=== PATIENT | male | born 1950 | race African-American/Black ===

== ENCOUNTER 2017-09-16 10:41 | Inpatient (IN) | payer MEDICARE, OTHER ==
[2017-09-16] MEDS ORDERED: NS 0.9% 1000 ML* 1,000 ML IV ONE ×2 (10:42→12:20)
[2017-09-16] MEDS ORDERED: Aspirin SUPP* 300 MG ONE (10:50)
--- NOTE | 2017-09-16 11:05 | RAD ---
INDICATION: Neurologic changes. Code vee. COMPARISON: None TECHNIQUE: Noncontrast axial source images were acquired from the skull base to the vertex. FINDINGS: Ventricles/sulci: The ventricles and cisterns are normal in size and configuration for age. Brain parenchyma: There is no focal parenchymal finding, evidence of intracranial mass, or intracranial mass effect. Intracranial hemorrhage:None. Extra-axial spaces: There are no abnormal extra axial fluid collections or evidence of extra-axial mass. Calvarium: There is no calvarial fracture or other calvarial abnormality. Scalp: There is no evidence of scalp or extracalvarial soft tissue abnormality. Paranasal sinuses/mastoid: The paranasal sinuses and mastoid air cells are clear. Other: None. IMPRESSION: No acute intracranial findings Findings called the ED at 1100 hours
[2017-09-16 11:42] LABS: Hematocrit 41 % (42-52); Hemoglobin 13.5 g/dl (14.0-18.0); Mean Corpuscular HGB Conc 33 g/dl (31-36); Mean Corpuscular Hemoglobin 34 pg (27-31); Mean Corpuscular Volume 103 fL (80-94); Mean Platelet Volume 9 um3 (7.4-10.4); Red Cell Distribution Width 15 % (10.5-15); White Blood Count 7.9 10^3/ul (3.5-10.8)
[2017-09-16 12:01] LABS: Albumin 4.1 g/dL (3.2-5.2); BUN/Creatinine Ratio 8.6 (8-20); Calcium 8.9 mg/dL (8.6-10.3); EGFR African American 145.6 (>60); EGFR Non-African American 113.2 (>60); Globulin 3.4 g/dL (2-4); HDL Cholesterol 145.6 mg/dL; Potassium 3.5 mmol/L (3.5-5.0); Total Bilirubin 0.6 mg/dL (0.2-1.0); Total Protein 7.5 g/dL (6.4-8.9)
[2017-09-16 12:02] LABS: Troponin I 0.02 ng/mL (<0.04)
[2017-09-16] MEDS ORDERED: Iohexol 350* (CONTRAST) 500 ML MDV IV ONE (12:07)
[2017-09-16] MEDS ORDERED: Aspirin SUPP* 300 MG PR ONE (12:19)
[2017-09-16] MEDS ORDERED: Thiamine IV* 100 MG, Folic Acid IV* 1 MG, Multiple Vitamin IV ADULT* 10 ML in NS 0.9% 1... IV ONE (12:31)
--- NOTE | 2017-09-16 12:32 | RAD ---
INDICATION: Stroke like symptoms COMPARISON: Chest x-ray dated November 14, 2013 TECHNIQUE: Single AP portable view of the chest was obtained. FINDINGS: Image quality is compromised due to the relative inferiority of a portable chest x-ray. Again seen is ectatic curvature of the thoracic aorta. The heart and mediastinum are otherwise normal in size and contour. The lungs are grossly clear. There is no evidence of a large pleural effusion. Visualized bones are normal for the patient's age. IMPRESSION: No radiographic evidence for acute cardiopulmonary abnormality on this portable chest x-ray.
--- NOTE | 2017-09-16 13:26 | RAD ---
Indication: Stroke. Contrast: Administered 80.1 ml of OMNIPAQUE 350 mg/ml CTA of the neck and head was performed after IV contrast demonstration. Coronal, sagittal and 3-D reconstructive images were obtained. The origins of the great vessels are unremarkable. The common carotid arteries demonstrates no significant stenosis or calcification. Calcific plaque is noted in the origins of both internal carotid arteries however no significant stenosis is identified. There may be some plaque noted in the right carotid bulb. The remainder of the internal carotid artery demonstrates no significant stenosis. No evidence of carotid artery dissection is noted. The vertebral arteries demonstrate no evidence of vertebral artery dissection and demonstrates fairly symmetric caliber. The carotid arteries in the skull base demonstrates no significant stenosis. Anterior and middle cerebral artery demonstrates normal bifurcation. No aneurysmal dilatation is noted. No branch occlusion is identified. Basilar artery and posterior cerebral arteries are unremarkable. No obvious intracranial lesion is identified. The skull base demonstrates mastoid air cells to be well aerated. Soft tissues of the neck demonstrates no evidence of abnormal adenopathy or masses. No prevertebral soft tissue swelling is noted. The lung apices are otherwise unremarkable. IMPRESSION: CTA of the neck demonstrates atherosclerotic plaque in the carotid bulb bilaterally. No evidence of significant stenosis or aortic dissection is noted. The intracranial circulation demonstrates no evidence of branch occlusion or aneurysmal dilatation.
[2017-09-16 14:11] LABS: Urine Bacteria Absent (Absent); Urine Bilirubin Negative (Negative); Urine Glucose Negative (Negative); Urine Nitrite Negative (Negative)
--- NOTE | 2017-09-16 15:01 | HP ---
HISTORY AND PHYSICAL: DATE OF ADMISSION: 09/16/17 PRIMARY CARE PHYSICIAN: He did not have one. CHIEF COMPLAINT: Right sided weakness. HISTORY OF PRESENT ILLNESS: Mr. Trotter is a 66-year-old male with a past medical history of alcohol abuse, tobacco abuse, little medical followup who presents to the hospital after he was found down by his . Patient cannot recall much of what led to the hospitalization. His states that she last saw him and interacted with him around 5 a.m. She thinks that around 9:30 a.m. he came to the bathroom with her although she was busy and did not actually see him, later on in the morning she found him on the floor in the room between the dresser and the bed. She states that he was awake, but she could not pick him up and noticed that he was weak on the right side and also noticed that his speech was slurred. She called EMS and he was brought to the hospital. The patient currently denies any pain, but again speech is slurred he cannot recall exactly why he came to the hospital. Denies fever or chills. Denies chest pain , says he has had a recent cough lately, productive of clear phlegm. No nausea or vomiting. Of note, the patient is a heavy drinker, states he drinks about a half a pint of vodka a day, and occasionally up to a pint. His last drink was earlier this morning. He has no history of stroke and does not currently take any medications or see any doctors. There was no report of any shaking, bladder or bowel incontinence. In the Emergency Department a roseann vee was called, the patient received 300 mg of rectal aspirin. Neurology and Hospital Medicine were consulted. PAST MEDICAL HISTORY: None. PAST SURGICAL HISTORY: None. HOME MEDICATIONS: None. ALLERGIES: No known drug allergies. FAMILY HISTORY: Significant for her mother with diabetes. SOCIAL HISTORY: Patient reports half pack per day smoking history x30 years, also half a pint to a pint of vodka daily. Last drink was this morning. He states she has never had withdrawal symptoms before, and his daughter chimed in because he does not stop drinking long enough to allow that. Reports occasional marijuana use. No intravenous drug use. REVIEW OF SYSTEMS: A 12-point review of systems is negative except what is noted in the HPI. PHYSICAL EXAMINATION GENERAL: The patient is a middle-aged, male, lying in bed, in no apparent distress. VITAL SIGNS: On admission, blood pressure 130/80, O2 saturation 94% on 3 L, heart rate of 105. HEENT: Head normocephalic, atraumatic. Eyes: Pupils equal, round and reactive to light and accommodation. Arcus senilis present. Anicteric sclerae. ENT: Dry mucous membranes. No cervical adenopathy. Alcohol smell on the patient's breath. LUNGS: Clear to auscultation in the anterior and lateral pillai bilaterally. CARDIOVASCULAR: Mild tachycardia. No murmurs, gallops, or rubs. ABDOMEN: Soft, nontender, nondistended. Bowel sounds are positive. EXTREMITIES: No cyanosis, clubbing, or edema. Patient with 4/5 strength in the right deltoid, 4+/5 in the right elbow flexion/extension, 5/5 strength throughout the left upper extremity. Right lower extremity with 4/5 strength in right hip flexion and extension. Remainder of right lower extremity and left lower extremity strength is 5/5. I did not assess patient's gait. NEUROLOGIC: The patient is alert and oriented, although seems slightly intoxicated. Speech is slurred. Cranial nerve exam shows a possible right sided facial weakness. Sensation seems intact and symmetric throughout. LABS AND DIAGNOSTICS: White blood cell count of 7.9, hematocrit of 41, MCV of 103, platelets of 159. INR of 0.85. Sodium 139, potassium 3.5, chloride of 99 , carbon dioxide of 21, anion gap of 19, glucose of 91, lactic acid of 8.3, AST of 306, ALT of 85, alk phos of 82. Troponin of 0.02, triglycerides of 82, cholesterol of 253, LDL of 91, HDL of 145. Serum alcohol of 129. CT of the brain shows no acute findings. Chest x-ray personally reviewed shows no acute disease. EKG personally reviewed shows sinus tachycardia, some questionable mild ST depression inferior and lateral leads. ASSESSMENT AND PLAN: Cerebrovascular accident, likely left middle cerebral artery, in a 66-year-old man with a past medical history of alcohol and tobacco abuse. 1. Cerebrovascular accident. Patient's code vee did not qualify for tPA. Dr. Murcia evaluated the patient. Patient received rectal aspirin. We will continue this daily for now. CTA of the head and neck as well as an MRI are pending at this time. We will order a transthoracic echocardiogram, continue to monitor the patient on telemetry. I have ordered OT/PT, Speech Therapy, and Swallow evaluation. I have also ordered a bedside swallow evaluation. We will keep the patient n.p.o. for now. I spoke with Dr. Murcia regarding patient's elevated lactate level. He did not feel that an EEG was needed at this time. 2. Lactic acidosis. Patient may be dehydrated secondary to alcohol use. He has received a liter of IV fluids in the Emergency Department. We will give another 1 L of bolus now as well as 100 cc per hour. Recheck a lactate in an hour. 3. Alcohol abuse. The patient currently is intoxicated with a serum alcohol of 129, also has a mild alcoholic hepatitis. Patient certainly at risk of developing alcohol withdrawal symptoms. I am a little hesitant to put him on standing Ativan in the setting of stroke as this could affect his neuro exam. For now, we will just use p.r.n. Ativan and if withdrawal symptoms become significant can always start standing dose at that time. We will give a banana bag here in the emergency department, start the patient on thiamine, folate, multivitamin as well. 4. DVT prophylaxis. Lovenox subcu. 5. Code status. The patient is full code. TIME SPENT: Total time spent on this admission 60 minutes with half the time spent [id number] with the patient in counseling and coordinating care. [id number]/[facility] #: [id number] MTDD
--- NOTE | 2017-09-16 16:48 | CONS ---
CONSULTATION REPORT: DATE OF CONSULT: 09/16/17 LOCATION: ER REASON FOR CONSULT: Harry vee. HISTORY OF PRESENT ILLNESS: Mr. Trotter is a 66-year-old gentleman who is a chronic and heavy alcohol user, currently intoxicated, who was brought to the ER by ambulance, initially with a report that he was last seen normal 1 hour prior to the admission about 10 a.m. His and daughter were both at the bedside. Upon further questioning, it was found that he was reliably last seen normal at 5 a.m. By the time he had arrived in the ER he was outside of the tPA window. In initial NIH stroke scale over the phone to me was 11, when I saw him he had a stroke scale of 7. The family states that his speech was improving some by that time. The family states that at around 5 a.m. his saw him normal walking around normal, normal speech. Subsequently, she was in the bathroom when he came in at around 10 or slightly before and she states that he walked by her, but she could not get a good sense of whether or not his speech was normal or he was weak on one side or the other. After discussing the fact that we needed a good reliable last normal, the and the daughter both felt like the most reliable last normal was at 5 a.m. We discussed the risks and benefits of tPA. I explained that the risks of giving tPA outside of the window were high for bleeding complications and the family understood and agreed. Upon arrival in the ER, he was noted to be hemiparetic on the right side with some fascial droop on the right side and slurred speech. His apparently found him down on the ground at around 10 o'clock at which point in time the ambulance was called. On the ground she noted that he was weak on the right side and had slurred speech. She states that his speech has improved. The patient does not go to the doctor. He was last seen in the ER back in 2012 , at that time he had sustained a fall. He was also seen in the distant past for rectal bleeding back in 2000. The states and the patient both state that he drinks approximately a half a pint to a pint of vodka a day. He also drinks beer on top of that. The and daughter also state that he smokes marijuana heavily 4 to 5 times a day and smokes cigarettes. He has been smoking cigarettes since the age of 13. He does not go to the doctor and the family is unclear about his past medical history. There has been no reported DTs in the past. No seizure like activity. There has been no reported recent illnesses, fevers, chills, nausea, vomiting, diarrhea, constipation, chest pain , shortness of breath, dyspnea on exertion, or other symptoms. Family notes that he is a very poor historian. PAST MEDICAL HISTORY: His past medical history is unknown. The family denies any past history of DTs, seizures, heart attacks, strokes, diabetes, or hyperlipidemia. PAST SURGICAL HISTORY: Unknown. Family states he has had no surgeries. CURRENT MEDICATIONS: None. ALLERGIES: No known drug allergies. FAMILY HISTORY: His family history is largely unknown, but his daughter states that he had a brother that had a heart attack, possible strokes in the family, otherwise unknown. SOCIAL HISTORY: As noted above, drinks half a pint to a pint of vodka a day. Smokes marijuana 4 to 5 times a day. Smokes cigarettes as well. Denies any IV drug use. He is not working. He lives with his . REVIEW OF SYSTEMS: In 14-organ systems as noted above, a very difficult history. He is not reliable, but pertinent positives and negatives are noted above. PHYSICAL EXAM: Vital Signs: His blood pressure was 130s/90s, pulse was tachycardic in the low 100s, respiratory rate of 16, his sats were good. On examination, he is a thin, poorly nourished gentleman, lying in his hospital bed. He is intoxicated, but generally pleasant. HEENT is normocephalic and atraumatic. His sclerae are dirty. Mucous membranes are slightly dry. Oropharynx is clear. He has poor dentition. Neck is supple. There is no carotid bruits. Chest is clear to auscultation bilaterally. Cardiovascular is tachycardic, regular rhythm, no murmurs appreciated. Abdomen is scaphoid, nontender. Extremities: There is no clubbing, cyanosis, or edema. Skin is very dry and flaky in the arms and legs. No significant lacerations noted. No bruising noted. Neurologic Examination: He is awake, he is intoxicated, but generally alert. He is oriented to person, to 2016, to September 16, not to the day of the week. He is unclear where he is. He knew he was in a hospital ER. His speech is dysarthric, there is no aphasia noted. His repetition is intact. Recall is generally intact although he is a poor historian. Cranial nerves: His pupils are equally round and reactive to light. His extraocular muscles are intact and looks in all quadrants. Visual pillai are intact. His space is asymmetric, he has a droop in the right lower face, flattening of the nasolabial fold. Sensation in the face is intact bilaterally. Hearing is intact bilaterally. His palate raises symmetrically. His tongue is midline. His sternocleidomastoid and trapezius were both normal. Motor Exam: He is unable to raise is right arm against gravity. He has some movement with gravity eliminated. His right lower extremity, he is able to lift off the exam bed for a few seconds and then drifted downward. He has 4-/5 resistance in the right lower extremity proximally, 4/5 distally. He has 5/5 on the right side upper and lower extremities. His sensation is intact to light touch and pinprick bilaterally and there is no extinction. DTRs were 3+ at the patella bilaterally, 1+ at he ankle bilaterally, upgoing Babinski's bilaterally, 1+ at the biceps and triceps bilaterally. He is tremulous, there is an intention tremor in the left upper extremity with [id number]. No dysmetria. He is unable to [id number] on the right, but on the left he is able to perform the task without difficulty. Gait cannot be tested at this time. DIAGNOSTIC STUDIES/LAB DATA: Lab work includes a CBC with diff, significant for hemoglobin of 13.5, hematocrit of 41, lymphocyte count of 21.4, monocyte of 9.7, PTT of 24.4, INR of 0.5. His complete metabolic profile is significant for chloride of 99, carbon-dioxide of 21, anion gap of 19. AST of 306, ALT of 85. LDL cholesterol is 91, HDL 145.6, triglycerides of 82, cholesterol of 253. IMAGING: He had a CT of the head, report is unavailable. I reviewed the films , I see no evidence of hemorrhage, no shift, no obvious acute abnormalities. ASSESSMENT AND PLAN: Mr. Trotter is a 66-year-old gentleman with no known past medical history, but does not go to the doctor. He has a history of heavy alcohol use, at least a half a pint to a pint a day of vodka for years. A history of heavy marijuana use daily, tobacco use. No history of seizures or DTs in the past. Presents to the hospital with acute onset of right upper and lower extremity weakness as well as facial droop and dysarthria concerning for a left MCA stroke. The patient is a very poor historian. After extensive questioning of the family, it was felt that the most reliable last normal was at 5 a.m. The could not state for certain that he was normal when she saw him at 10 a.m. and the patient was unable to provide any history. After discussing the risks and benefits of tPA with the family we all felt that because the timeline was unclear, the risks outweigh the benefits and it was decided not to give him tPA. He will be admitted for stroke workup. 1. He received aspirin in the ER, will continue baby aspirin for now. 2. He is to have an MRI of the brain, CTA of the head and neck, and echocardiogram. 3. I would recommend starting a statin, atorvastatin 80 mg daily at bedtime. 4. Permissive hypertension, will need labetalol p.r.n. for systolic blood pressure greater than 220, diastolic greater than 110. 5. We will check lab work to rule out reversible causes of stroke. 6. Monitor on telemetry for any evidence of atrial fibrillation. 7. He will be monitored closely for any evidence of DTs given his heavy alcohol use including tachycardia, diaphoresis, seizure-like activity, altered mental status. I spoke with the admitting physician. They will start him on a banana bag, supplement folic acid and thiamine. Defer to them whether to put in on prophylactic benzodiazepine, may need beta-christin if his tachycardia becomes unmanageable. 8. I would make him n.p.o. pending a swallowing evaluation given his significant dysarthria. 9. He will need PT/OT/speech therapy. 10. Discussed with the family and the patient the importance of smoking cessation, marijuana cessation, and alcohol cessation. 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 DVT and GI prophylaxis per the primary team. I will continue to follow him closely, make further recommendations as necessary. Thank you for the opportunity to participate in the care of this very nice gentleman. [id number]/[facility] #: [id number] TRUPTI
[2017-09-16] MEDS: NS 0.9% 1000 ML* 1,000 ML IV SCH (17:04)
[2017-09-16] MEDS: Enoxaparin(*) 40 MG/0.4 ML SYR SUBCUT SCH (17:13)
--- NOTE | 2017-09-16 18:39 | RAD ---
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 IMPRESSION: No radiopaque foreign body is identified.
--- NOTE | 2017-09-16 19:35 | RAD ---
Indication: Stroke. Image sequences: Sagittal T1, axial flair, diffusion images of the brain were obtained. The study is limited as the patient would not cooperate for further examination. Ventricular structures are midline. No midline shift is noted. The extra-axial spaces are slightly prominent. There appears to be restriction of diffusion in the left posterior limb of the internal capsule as well as in the left periventricular white matter in the left parietal area. This is consistent with small lacunar infarcts. The right cerebral hemisphere is unremarkable. The brainstem and posterior fossa are unremarkable. The paranasal sinuses are unremarkable. IMPRESSION: There appears to be small lacunar infarcts involving the left basal ganglia in the region of the left posterior limb of the internal capsule as well as the left periventricular white matter.
[2017-09-16 21:43] LABS: TSH (Thyroid Stimulating Horm) 0.59 mcIU/mL (0.34-5.60)
[2017-09-16 21:47] LABS: Free T4 0.69 ng/dL (0.61-1.12)
[2017-09-16 21:56] LABS: Folate 9.07 ng/mL (>3.99)
[2017-09-17] MEDS: LORazepam INJ* 2 MG/ML 1 ML VIAL IV PUSH SCH ×4 (03:37→23:38)
[2017-09-17 05:58] LABS: Albumin 3.9 g/dL (3.2-5.2); BUN/Creatinine Ratio 8.3 (8-20); Calcium 8.4 mg/dL (8.6-10.3); EGFR Non-African American 174.9 (>60); Globulin 3.2 g/dL (2-4); Potassium 3.3 mmol/L (3.5-5.0); Total Bilirubin 0.6 mg/dL (0.2-1.0); Total Protein 7.1 g/dL (6.4-8.9)
[2017-09-17] MEDS: NS 0.9% 1000 ML* 1,000 ML IV SCH ×2 (06:45→21:12)
[2017-09-17] MEDS: Multivitamins/Minerals TAB PO SCH (07:55)
[2017-09-17] MEDS: Aspirin Low Dose CHEW TAB* 81 MG PO SCH (07:56)
[2017-09-17] MEDS: Thiamine TAB* 100 MG TAB PO SCH (07:56)
[2017-09-17] MEDS: Folic Acid TAB* 1 MG PO SCH (07:56)
--- NOTE | 2017-09-17 08:00 | ECHO ---
Patient: JAY JAY SOTO I [facility] Rec#: [id number] : 1950 Date: 09/16/2017 Age: 66y Height: 175.26 cm / 69.0 in Weight: 67.13 kg / 148.0 lbs Sex: M BSA: 1.82 Room#: 437 Admit Date#: 09/16/2017 Type: Inpatient Referring: CIARA CARVER MD Reading: Kanu Sorenson MD Crusher Operator: Rebecca DavisonNEW [facility]RISE [facility] Transthoracic Echocardiogram Indication: CVA BP: 146/123 HR: 89 Rhythm: NSR Findings History: Smoker, and ETOH abuse. Technical Comments: The study is technically difficult. The study is technically limited due to poor acoustic windows. Completed at 1650. Left Ventricle: The left ventricular chamber size is normal. There is no left ventricular hypertrophy. Global left ventricular wall motion and contractility are within normal limits. There is normal left ventricular systolic function. The estimated ejection fraction is 55-60%. There is no consistent Doppler evidence of clinically significant diastolic dysfunction. Left Atrium: The left atrial chamber size is normal. Right Ventricle: The right ventricle is mildly dilated. The right ventricular global systolic function is hyperdynamic. Right Atrium: The right atrial cavity size is normal. A patent foramen ovale is visualized. There is a patent foramen ovale with predominant [id number] shunting.Only seen during valsalva manuver A patent foramen ovale is demonstrated by color Doppler and agitated contrast. Aortic Valve: The aortic valve is trileaflet. The aortic valve leaflets are mildly thickened. There is no evidence of aortic regurgitation. There is no evidence of aortic stenosis. Mitral Valve: The mitral valve leaflets are mildly thickened. There is a trace of mitral regurgitation. There is no evidence of mitral stenosis. Tricuspid Valve: The tricuspid valve leaflets are mildly thickened. There is mild to moderate tricuspid regurgitation. The right ventricular systolic pressure is estimated at 35 mmHg. There is no tricuspid stenosis. Pulmonic Valve: The pulmonic valve appears normal. There is a trace pulmonic regurgitation. There is no pulmonic stenosis. Pericardium: There is no significant pericardial effusion. A pericardial fat pad is visualized. Aorta: There is moderate dilatation of the ascending aorta. There is no dilatation of the aortic arch. There is mild dilatation of the aortic root. Pulmonary Artery: The main pulmonary artery is not well visualized. Venous: The inferior vena cava appears normal in size. There is an approximate 50% respiratory change in the inferior vena cava dimension. Contrast: Normal saline was used as contrast for the bubble study. Images 12 and 13. Intravenous contrast was used to help determine presence of intracardiac shunting. Conclusions Global left ventricular wall motion and contractility are within normal limits. There is normal left ventricular systolic function. The estimated ejection fraction is 55-60%. The right ventricular global systolic function is hyperdynamic. There is a patent foramen ovale with predominant [id number] shunting.Only seen during valsalva manuver There is no evidence of aortic stenosis. There is a trace of mitral regurgitation. There is mild to moderate tricuspid regurgitation. The right ventricular systolic pressure is estimated at 35 mmHg. There is no significant pericardial effusion. There is moderate dilatation of the ascending aorta. Measurements Name Value Normal Range RVIDd (AP) 2D 3 cm (0.9 - 2.6) RVDdMajor (2D) 4.5 cm (2.2 - 4.4) RAd ISD 4CH 4.8 cm (3.4 - 4.9) RA (A4C)W 3.7 cm (2.9 - 4.6) IVSd (2D) 0.8 cm (0.6 - 1) LVPWd (2D) 0.8 cm (0.6 - 1) LVIDd (2D) 4.6 cm (3.6 - 5.4) LVIDs (2D) 3.13 cm - LV FS (2D) 32 % (25 - 45) Aortic Annulus 2.3 cm (1.4 - 2.6) Ao root diameter (2D) 3.7 cm (2.1 - 3.5) Ascending Ao 4.1 cm (2.1 - 3.4) Aortic arch 3 cm (1.8 - 3.4) LA dimension (AP) 2D 3.1 cm (2.3 - 3.8) LAd ISD 4CH 3.7 cm (2.9 - 5.3) LA ISD 4CH W 3.3 cm (2.5 - 4.5) Name Value Normal Range LA ESV SP 4CH (A/L) 42 ml - LA ESV SP 2CH (A/L) 52 ml - LA ESV BP (A/L) 53 ml - LA ESV BP (A/L) index 29 ml/m2 - LA ESV SP 4CH (MOD) 28 ml - LA ESV SP 2CH (MOD) 48 ml - Name Value Normal Range MV E-wave Vmax 0.52 m/sec - MV deceleration time 128.18 msec - MV A-wave Vmax 0.74 m/sec - MV E:A ratio 0.7 ratio - LV septal e' Vmax 0.05 m/sec - LV lateral e' Vmax 0.09 m/sec - LV E:e' septal ratio 10.4 ratio - LV E:e' lateral ratio 5.8 ratio - Name Value Normal Range AV Vmax 1.3 m/sec - AV VTI 21.99 cm - AV peak gradient 6.3 mmHg - AV mean gradient 3.61 mmHg - LVOT Vmax 0.76 m/sec - LVOT VTI 12.24 cm - LVOT peak gradient 2.31 mmHg - LVOT mean gradient 1.22 mmHg - XIOMARA Vmax 0.43 m/sec - Name Value Normal Range TR Vmax 2.61 m/sec - TR peak gradient 27 mmHg - RAP 8 mmHg - RVSP 35 mmHg - IVC diameter 1.8 cm - Name Value Normal Range PV Vmax 1.02 m/sec - PV peak gradient 4.2 mmHg -
--- NOTE | 2017-09-17 08:45 | PN ---
Subjective Date of Service: 09/17/17 Interval History: Patient seen this morning. Reports some weakness and discomfort on the right side. present, speech clearer today. Has received some Ativan overnight for withdrawal symptoms. Family History: Unchanged from Admission Social History: Unchanged from Admission Past Medical History: Unchanged from Admission Objective Active Medications: Aspirin (Aspirin Low Dose Tab*) 81 mg PO DAILY [facility] Last Admin: 09/17/17 07:56 Dose: 81 mg Atorvastatin Calcium (Lipitor*) 40 mg PO 1700 LAVELL Enoxaparin Sodium (Lovenox(*)) 40 mg SUBCUT Q24H [facility] Last Admin: 09/16/17 17:13 Dose: 40 mg Folic Acid (Folvite Tab*) 1 mg PO DAILY [facility] Last Admin: 09/17/17 07:56 Dose: 1 mg Sodium Chloride (Ns 0.9% 1000 Ml*) 1,000 mls @ 100 mls/hr IV PER RATE [facility] Last Admin: 09/17/17 06:45 Dose: 100 mls/hr Labetalol HCl (Trandate Iv*) 10 mg IV PUSH Q20M PRN PRN Reason: BLOOD PRESSURE Lorazepam (Ativan Tab(*)) 0 - 6 mg PO .PER WA PROTOCOL [facility] PRN Reason: Protocol Lorazepam (Ativan Tab(*)) 0 mg PO Q8H [facility] PRN Reason: Taper Stop: 09/20/17 04:59 Multivitamins/Minerals (Theragran/Minerals Tab*) 1 tab PO DAILY [facility] Last Admin: 09/17/17 07:55 Dose: 1 tab Thiamine HCl (Vitamin B-1 Tab*) 100 mg PO DAILY [facility] Last Admin: 09/17/17 07:56 Dose: 100 mg Vital Signs 09/16/17 09/16/17 09/16/17 13:13 13:14 13:30 Temperature Pulse Rate 90 94 Respiratory 14 14 Rate Blood Pressure 146/85 147/96 (mmHg) O2 Sat by Pulse 98 98 Oximetry 09/16/17 09/16/17 09/16/17 14:00 14:06 15:13 Temperature 98.6 F 98.6 F Pulse Rate 91 100 100 Respiratory 16 16 16 Rate Blood Pressure 144/84 153/105 153/105 (mmHg) O2 Sat by Pulse 97 100 100 Oximetry 09/17/17 09/17/17 09/17/17 03:37 04:37 05:35 Temperature Pulse Rate 66 Respiratory 20 20 Rate Blood Pressure 164/84 (mmHg) O2 Sat by Pulse 99 Oximetry Oxygen Devices in Use Now: None Appearance: Middle-aged, AAM, laying in bed in NAD Eyes: No Scleral Icterus Ears/Nose/Mouth/Throat: - - Dry MM Neck: NL Appearance and Movements; NL JVP Respiratory: Symmetrical Chest Expansion and Respiratory Effort, Clear to Auscultation Cardiovascular: NL Sounds; No Murmurs; No JVD, RRR Abdominal: NL Sounds; No Tenderness; No Distention Lymphatic: No Cervical Adenopathy Extremities: No Edema Skin: No Rash or Ulcers Neurological: - - Improvement in R facial droop, speech clearer. 5/5 strength throughout B/L UEs and LEs. Reports some heightened sensitivity in RUE, sensation symmetric in LEs Result Diagrams: 09/16/17 11:25 09/17/17 05:08 Assess/Plan/Problems-Billing Assessment: CVA, EtOH withdrawal in a 66 yo M with hx of EtOH and tobacco abuse - Patient Problems (1) CVA (cerebral vascular accident) Current Visit: Yes Comment: MRI shows small L sided lacunar infarcts. Appreciate Neuro assistance. Continue ASA, statin. Permissive HTN. PFO on echo, Dr. Murcia to order LE dopplers. PT/OT/Speech/ARTIST MODEL. (2) Alcohol withdrawal Current Visit: Yes Comment: WA protocol. Will add standing Ativan taper, may need increased dose. Continue prn ativan. Thiamine, folate, MVM. (3) Lactic acidosis Current Visit: Yes Comment: Resolved with IVF (4) DVT prophylaxis Current Visit: Yes Comment: Lovenox
[2017-09-17] MEDS ORDERED: Magnesium Sulfate 2 GM IV* 2 GM/50 ML BAG IVPB ONE (08:57)
[2017-09-17] MEDS ORDERED: Aspirin SUPP* 300 MG PR SCH (09:00)
[2017-09-17] MEDS: Potassium Chloride LIQUID* 20 MEQ PACKET PO SCH ×2 (09:12→12:12)
[2017-09-17] MEDS: LORazepam TAB(*) 1 MG PO SCH ×5 (09:12→17:56)
[2017-09-17 09:16] LABS: Magnesium 1.7 mg/dL (1.9-2.7)
--- NOTE | 2017-09-17 11:37 | PN ---
PROGRESS NOTE: DATE OF PROGRESS NOTE: 09/17/17 CURRENT LOCATION: Room 437, bed 1. HISTORY: Overnight, he has been somewhat agitated at times. He did vomit x1. He has been more tremulous. He has been getting Ativan for withdrawal type symptoms. There have been no seizures reported. Overnight, his stroke symptoms have improved somewhat. His speech is better. He is moving his right side more. He is slightly agitated at this time, but understands why he is here and knows where he is. There have been no other reports overnight of any problems. Vital Signs: Blood pressure 164/84, O2 sat of 99, respiratory rate of 20, pulse is 67. Blood pressures have been in 150s to 160s over 80s to low 100s. In general, he is a well-developed although thin and somewhat poorly nourished gentleman lying in his hospital bed. His is at the bedside. Seizure pads are in place. HEENT: He is normocephalic, atraumatic. Sclerae are dirty. Mucous membranes are moist. His oropharynx is clear. He has poor dentition. Neck is supple. Chest: Clear to auscultation bilaterally. Cardiovascular is regular rate and rhythm. Abdomen is nontender. Scaphoid. Extremities: No cyanosis, clubbing, or edema. His skin is warm and is very flaky and dry. On neurologic exam, he is awake. He is alert. He is oriented to person, place, and time. His speech is fluent with some etzo-dm-kbbgrxkq dysarthria. There is no aphasia present. Cranial nerves II through XII. His pupils are equal, round, and reactive to light. Extraocular muscles are intact. Visual pillai are full. He has right lower facial droop diminished smile. Sensation is intact. Hearing is intact. Tongue is midline. Palate is symmetric. Motor exam, spontaneously moving all extremities, antigravity. He has improved strength in the right upper and right lower extremity. He is able to give good effort 4+/5 throughout. He has some drift in the right upper extremity after about 8 seconds. He has drift in the right lower extremity after 4 or 5 seconds. He has some mild drift in the left lower extremity after 10 seconds. Sensation is intact to light touch and pinprick throughout. There is no extinction. Finger- to-nose and rapid alternating movements are significant for [id number] tremor bilaterally. He is also tremulous in bed at rest arms and legs. Lab work includes a complete metabolic profile this morning with a potassium of 3.3, chloride of 95, anion gap of 12, BUN of 4, creatinine of 0.48, calcium of 8.4. AST of 235, ALT of 72, TSH is 0.59, free T4 0.69, B12 of 634, folate of 9.07. His serum alcohol was 129. LDL as noted yesterday of 91. Triglycerides of 82, cholesterol 253, HDL 145.6. Following studies have been done. The brain CT yesterday reviewed showed no acute abnormalities. The chest x-ray yesterday showed no cardiopulmonary abnormalities acute. Head CTA yesterday showed no intracranial stenosis, vertebral and basilar artery looked okay. There is calcific plaque noted in the origins of both internal carotids; however, no significant stenosis, maybe some plaque in the right carotid bulb. Remainder of the internal carotids show no stenosis and no evidence of dissection. He did have the MRI, which was reviewed; it shows lacunar infarction involving the left basal ganglia in the region of the left posterior lamina of the internal capsule as well as the left periventricular white matter. Transthoracic echocardiogram showed a global left ventricular wall motion and contractility within normal limits. Normal left ventricular systolic function, estimated ejection fraction of 55% to 60%. Right ventricular global systolic function is hyperdynamic. There is patent foramen ovale with predominant right to left shift only during Valsalva. There is no evidence of aortic stenosis. There is trace mild regurg, mild-to- moderate tricuspid regurg, right ventricular systolic pressure is estimated at 35 mmHg. No significant pericardial effusion. There is moderate dilatation of the ascending aorta. Mr. Trotter is a 66-year-old gentleman who is a heavy alcohol and marijuana user, also does not follow regularly with any physicians. He is not on any medications at admission, presented with dysarthria, right facial droop, and right-sided weakness, found to have a left basal ganglia and periventricular stroke. He also came in intoxicated and is starting to withdraw. At this point from a stroke standpoint, we are going to continue his aspirin and statin. He does have a PFO, I am going to check venous Dopplers of the lower extremities to rule out any DVTs. At this point, I feel that treatment with aspirin alone is adequate for the PFO. There is no real benefit at this point barring any other findings to treat with a higher level of anticoagulation. He has no history of atrial fibrillation. He has no history of blood clots. He has no significant other findings on MRI that would suggest old strokes. We will continue the aspirin and follow up with a venous ultrasound. He is currently on a statin as well, goal LDL will be less than 70. I worry about ongoing medical care for him as he is been noncompliant in the past, but at this point, he is starting the process of withdrawing from the alcohol. I spoke with his primary care physician, who has him on scheduled benzodiazepine. He is also on supplemental folic acid and thiamine as well as multivitamin and getting IV fluids. He has labetalol p.r.n. for elevated blood pressures. At this point, I am comfortable with some permissive hypertension given his recent stroke. We start to lower that tomorrow with medications as necessary. He is on DVT prophylaxis. I will continue to follow him and make further recommendations as necessary. [id number]/[facility] #: [id number] TRUPTI
[2017-09-17] MEDS: Enoxaparin(*) 40 MG/0.4 ML SYR SUBCUT SCH (12:12)
[2017-09-17] MEDS ORDERED: Metoprolol Tartrate TAB* 25 MG PO SCH (13:00)
--- NOTE | 2017-09-17 13:04 | RAD ---
INDICATION: Pain and swelling. Recent CVA COMPARISON: None TECHNIQUE: Duplex interrogation of the Lowerextremity was performed. FINDINGS: Deep veins: The common femoral, great saphenous, profunda femoris, proximal, mid, and distal deep femoral, popliteal, posterior tibial, and peroneal veins are interrogated. There is normal compressibility, augmentation, and phasic flow on all deep venous structures on the right. On the left only one of the peroneal veins couldn't be seen. This could be related to technical factors or be related to acute or chronic thrombosis. Superficial veins: There are no findings of superficial thrombophlebitis. Popliteal fossa:There is no evidence of a popliteal cyst. Soft tissues:There are no soft tissue abnormalities. IMPRESSION: Nonvisualization of one of the peroneal veins on the left. The findings are suspicious for thrombosis which could be acute or chronic but requires correlation with clinical presentation. No evidence of [id number] deep venous thrombosis.
[2017-09-17] MEDS: Metoprolol Tartrate IV* 1 MG/ML 5 ML VIAL IV PRN (16:18)
[2017-09-17] MEDS: Metoprolol Tartrate TAB* 25 MG PO SCH ×3 (16:36→23:45)
[2017-09-17] MEDS: Atorvastatin* 80 MG TAB PO SCH (16:36)
[2017-09-17] MEDS ORDERED: Atorvastatin* 40 MG TAB PO SCH (17:00)
--- NOTE | 2017-09-17 17:05 | PN ---
Hospitalist Progress Note Patient seen this afternoon. He had been having a few bursts of SVT this morning and this afternoon had a more prolonged episode that resolved with valsalva maneuver. K and Mg were repleted and patient was started on a beta- christin. Suspect that withdrawal is contributing to this. Also of note patient had PFO noted on echo. Spoke with Dr. Hayes who does not think patient needs PFO repair at this time and would be happy to follow-up with the patient in the clinic. LE doppler showed non-visualization of one of the L peroneal veins. Spoke with Radiology who states this is most often seen with a chronic thrombus but could not rule out acute definitively. Radiology did not think a CT scan or venogram would be very helpful as the vein is so small. Spoke with Dr. Murcia who would not anticoagulate the patient at this point either way in the setting of an acute CVA. I think the patient would be high risk AC candidate even without the stroke based on his excessive drinking and lack of medical follow-up.
[2017-09-17] MEDS ORDERED: LORazepam INJ* 2 MG/ML 1 ML VIAL IV PUSH ONE (17:17)
[2017-09-17] MEDS ORDERED: LORazepam TAB(*) 1 MG PO SCH (17:18)
--- NOTE | 2017-09-17 18:55 | ED ---
Jean Paul Hays Thomas, scribed for Yamil Wang MD on 09/16/17 at 1054 . Neurological HPI - HPI Summary HPI Summary: The pt is a 66 y/o M BIBA with R-sided weakness and some aphasia that began today at 09:25. He has R-sided facial droop, slurred speech, R-sided sensory loss. These deficits are constant. They are aggravated and alleviated by nothing. He was not given any medication prior to arrival. He denies visual loss. NIH score of 11. LEVEL FIVE CAVEAT: HPI LIMITED BY APHASIA. - History of Current Complaint Stated Complaint: STROKE LIKE SYMPTOMS Time Seen by Provider: 09/16/17 10:43 Hx Obtained From: Patient, EMS Onset/Duration: Sudden Onset, Started hours ago - onset today at 09:25, Still Present Onset Severity: Moderate Current Severity: Moderate Neurological Deficit Location: RUE, RLE Pain Intensity: 0 Pain Scale Used: 0-10 Numeric Aggravating: Nothing Alleviating: Nothing Associated Signs and Symptoms: Positive: Weakness - R-sided, Impaired Speech - Allergy/Home Medications Allergies/Adverse Reactions: Allergies Allergy/AdvReac Type Severity Reaction Status Date / Time No Known Allergies Allergy Verified 11/14/13 11:04 PMH/Surg Hx/FS Hx/Imm Hx Previously Healthy: No - LEVEL FIVE CAVEAT: PMH LIMITED BY APHASIA. Endocrine/Hematology History: Denies: Hx Diabetes, Hx Thyroid Disease Cardiovascular History: Denies: Hx Hypertension Respiratory History: Denies: Hx Asthma, Hx Chronic Obstructive Pulmonary Disease (COPD) GI History: Denies: Hx Ulcer Infectious Disease History: Denies: Hx Clostridium Difficile, Hx Hepatitis, Hx Human Immunodeficiency Virus (HIV), Hx of Known/Suspected MRSA, Hx Shingles, Hx Tuberculosis - Social History Substance Use Type: Reports: None Review of Systems - ROS Summary Review of Systems Summary: LEVEL FIVE CAVEAT: ROS LIMITED BY APHASIA. Negative: Fever Neurological: Other - Aphasia, R-sided facial droop, R-sided sensory loss. Positive: Weakness - L-sided, Slurred Speech All Other Systems Reviewed And Are Negative: No Physical Exam - Summary Physical Exam Summary: LEVEL FIVE CAVEAT: PHYSICAL EXAM LIMITED BY APHASIA. VITAL SIGNS: Reviewed. GENERAL: Patient is a well-developed and nourished male who is lying comfortable in the stretcher. Patient is not in any acute respiratory distress. HEAD AND FACE: No signs of trauma. No ecchymosis, hematomas or skull depressions. No sinus tenderness. EYES: PERRLA, EOMI x 2, No injected conjunctiva, no nystagmus. No photophobia. EARS: Hearing grossly intact. Ear canals and tympanic membranes are within normal limits. MOUTH: Oropharynx within normal limits. NECK: Supple, trachea is midline, no adenopathy, no JVD, no carotid bruit, no c- spine tenderness, neck with full ROM. No meningeal signs, no Kernig's or brudzinskis signs. CHEST: Symmetric, no tenderness at palpation LUNGS: Clear to auscultation bilaterally. No wheezing or crackles. CVS: Regular rate and rhythm, S1 and S2 present, no murmurs or gallops appreciated. ABDOMEN: Soft, non-tender. No signs of distention. No rebound no guarding, and no masses palpated. Bowel sounds are normal. EXTREMITIES: FROM in all major joints, no edema, no cyanosis or clubbing. NEURO: Alert and oriented x 3. He answers questions. He has weakness on the right side of his body. He has R-sided facial droop. His speech is slurred. SKIN: Dry and warm Triage Information Reviewed: Yes Vital Signs On Initial Exam: Temp Pulse Resp BP Pulse Ox 98 F 114 17 146/123 88 09/16/17 10:50 09/16/17 10:50 09/16/17 10:50 09/16/17 10:50 09/16/17 10:50 Vital Signs Reviewed: Yes Diagnostics - Vital Signs Temp Pulse Resp BP Pulse Ox 09/16/17 12:00 102 17 128/93 09/16/17 11:30 105 17 137/92 09/16/17 11:08 98 F 110 14 139/98 88 09/16/17 10:50 98 F 114 17 146/123 88 - Laboratory Lab Results: Lab Results 09/16/17 09/16/17 09/16/17 Range/Units 11:22 11:25 11:25 WBC 7.9 (3.5-10.8) 10^3/ul RBC 4.00 (4.0-5.4) 10^6/ul Hgb 13.5 L (14.0-18.0) g/dl Hct 41 L (42-52) % MCV 103 H (80-94) fL MCH 34 H (27-31) pg MCHC 33 (31-36) g/dl RDW 15 (10.5-15) % Plt Count 159 (150-450) 10^3/ul MPV 9 (7.4-10.4) um3 Neut % (Auto) 67.8 (38-83) % Lymph % (Auto) 21.4 L (25-47) % Coos % (Auto) 9.7 H (1-9) % Eos % (Auto) 0.4 (0-6) % Baso % (Auto) 0.7 (0-2) % Absolute Neuts (auto) 5.4 (1.5-7.7) 10^3/ul Absolute Lymphs (auto) 1.7 (1.0-4.8) 10^3/ul Absolute Monos (auto) 0.8 (0-0.8) 10^3/ul Absolute Eos (auto) 0 (0-0.6) 10^3/ul Absolute Basos (auto) 0.1 (0-0.2) 10^3/ul Absolute Nucleated RBC 0 10^3/ul Nucleated RBC % 0 INR (Anticoag Therapy) 0.85 L (0.89-1.11) APTT 24.4 L (26.0-36.3) seconds Sodium (133-145) mmol/L Potassium (3.5-5.0) mmol/L Chloride (101-111) mmol/L Carbon Dioxide (22-32) mmol/L Anion Gap (2-11) mmol/L BUN (6-24) mg/dL Creatinine (0.67-1.17) mg/dL Est GFR ( Amer) (>60) Est GFR (Non-Af Amer) (>60) BUN/Creatinine Ratio (8-20) Glucose (70-100) mg/dL POC Glucose (mg/dL) 88 (70-100) mg/dL Hemoglobin A1c (4.0-5.6) % Lactic Acid (0.5-2.0) mmol/L Calcium (8.6-10.3) mg/dL Total Bilirubin (0.2-1.0) mg/dL AST (13-39) U/L ALT (7-52) U/L Alkaline Phosphatase (34-104) U/L Total Creatine Kinase (10-223) U/L Troponin I (<0.04) ng/mL Total Protein (6.4-8.9) g/dL Albumin (3.2-5.2) g/dL Globulin (2-4) g/dL Albumin/Globulin Ratio (1-3) Triglycerides mg/dL Cholesterol mg/dL LDL Cholesterol mg/dL HDL Cholesterol mg/dL Serum Alcohol (<10) mg/dL Blood Type Antibody Screen 09/16/17 09/16/17 09/16/17 Range/Units 11:25 11:25 11:25 WBC (3.5-10.8) 10^3/ul RBC (4.0-5.4) 10^6/ul Hgb (14.0-18.0) g/dl Hct (42-52) % MCV (80-94) fL MCH (27-31) pg MCHC (31-36) g/dl RDW (10.5-15) % Plt Count (150-450) 10^3/ul MPV (7.4-10.4) um3 Neut % (Auto) (38-83) % Lymph % (Auto) (25-47) % Coos % (Auto) (1-9) % Eos % (Auto) (0-6) % Baso % (Auto) (0-2) % Absolute Neuts (auto) (1.5-7.7) 10^3/ul Absolute Lymphs (auto) (1.0-4.8) 10^3/ul Absolute Monos (auto) (0-0.8) 10^3/ul Absolute Eos (auto) (0-0.6) 10^3/ul Absolute Basos (auto) (0-0.2) 10^3/ul Absolute Nucleated RBC 10^3/ul Nucleated RBC % INR (Anticoag Therapy) (0.89-1.11) APTT (26.0-36.3) seconds Sodium 139 (133-145) mmol/L Potassium 3.5 (3.5-5.0) mmol/L Chloride 99 L (101-111) mmol/L Carbon Dioxide 21 L (22-32) mmol/L Anion Gap 19 H (2-11) mmol/L BUN 6 (6-24) mg/dL Creatinine 0.70 (0.67-1.17) mg/dL Est GFR ( Amer) 145.6 (>60) Est GFR (Non-Af Amer) 113.2 (>60) BUN/Creatinine Ratio 8.6 (8-20) Glucose 91 (70-100) mg/dL POC Glucose (mg/dL) (70-100) mg/dL Hemoglobin A1c (4.0-5.6) % Lactic Acid 8.3 H* (0.5-2.0) mmol/L Calcium 8.9 (8.6-10.3) mg/dL Total Bilirubin 0.60 (0.2-1.0) mg/dL AST 306 H (13-39) U/L ALT 85 H (7-52) U/L Alkaline Phosphatase 82 (34-104) U/L Total Creatine Kinase 132 (10-223) U/L Troponin I 0.02 (<0.04) ng/mL Total Protein 7.5 (6.4-8.9) g/dL Albumin 4.1 (3.2-5.2) g/dL Globulin 3.4 (2-4) g/dL Albumin/Globulin Ratio 1.2 (1-3) Triglycerides 82 mg/dL Cholesterol 253 mg/dL LDL Cholesterol 91 mg/dL HDL Cholesterol 145.6 mg/dL Serum Alcohol 129 H (<10) mg/dL Blood Type A Positive Antibody Screen Negative 09/16/17 Range/Units 11:25 WBC (3.5-10.8) 10^3/ul RBC (4.0-5.4) 10^6/ul Hgb (14.0-18.0) g/dl Hct (42-52) % MCV (80-94) fL MCH (27-31) pg MCHC (31-36) g/dl RDW (10.5-15) % Plt Count (150-450) 10^3/ul MPV (7.4-10.4) um3 Neut % (Auto) (38-83) % Lymph % (Auto) (25-47) % Coos % (Auto) (1-9) % Eos % (Auto) (0-6) % Baso % (Auto) (0-2) % Absolute Neuts (auto) (1.5-7.7) 10^3/ul Absolute Lymphs (auto) (1.0-4.8) 10^3/ul Absolute Monos (auto) (0-0.8) 10^3/ul Absolute Eos (auto) (0-0.6) 10^3/ul Absolute Basos (auto) (0-0.2) 10^3/ul Absolute Nucleated RBC 10^3/ul Nucleated RBC % INR (Anticoag Therapy) (0.89-1.11) APTT (26.0-36.3) seconds Sodium (133-145) mmol/L Potassium (3.5-5.0) mmol/L Chloride (101-111) mmol/L Carbon Dioxide (22-32) mmol/L Anion Gap (2-11) mmol/L BUN (6-24) mg/dL Creatinine (0.67-1.17) mg/dL Est GFR ( Amer) (>60) Est GFR (Non-Af Amer) (>60) BUN/Creatinine Ratio (8-20) Glucose (70-100) mg/dL POC Glucose (mg/dL) (70-100) mg/dL Hemoglobin A1c 4.9 (4.0-5.6) % Lactic Acid (0.5-2.0) mmol/L Calcium (8.6-10.3) mg/dL Total Bilirubin (0.2-1.0) mg/dL AST (13-39) U/L ALT (7-52) U/L Alkaline Phosphatase (34-104) U/L Total Creatine Kinase (10-223) U/L Troponin I (<0.04) ng/mL Total Protein (6.4-8.9) g/dL Albumin (3.2-5.2) g/dL Globulin (2-4) g/dL Albumin/Globulin Ratio (1-3) Triglycerides mg/dL Cholesterol mg/dL LDL Cholesterol mg/dL HDL Cholesterol mg/dL Serum Alcohol (<10) mg/dL Blood Type Antibody Screen Result Diagrams: 09/16/17 11:25 09/17/17 05:08 Lab Statement: Any lab studies that have been ordered have been reviewed, and results considered in the medical decision making process. - Radiology CXR Xray Interpretation: No Acute Changes - No radiographic evidence for acute cardiopulmonary abnormality on this portable chest x-ray. ED physician has reviewed this report and agrees. Radiology Interpretation Completed By: Radiologist - CT CT Brain CT Interpretation: No Acute Changes - No acute intracranial findings. GCS 15. ED physician has reviewed this report and agrees. CT Interpretation Completed By: Radiologist CTA Head and Neck CT Interpretation: No Acute Changes - CTA of the neck demonstrates atherosclerotic plaque in the carotid bulb bilaterally. No evidence of significant stenosis or aortic dissection is noted. The intracranial circulation demonstrates no evidence of branch occlusion or aneurysmal dilatation. ED physician has reviewed this report and agrees. CT Interpretation Completed By: Radiologist - EKG 10:49 Cardiac Rate: NL - 101 BPM EKG Rhythm: Sinus Tachycardia EKG Interpretation: no ST elevations. NIH Scale - NIH Scale Level of Consciousness: Alert/Keenly Responsive Ask Patient the Month and His/Her Age: Both Correct Ask Pt to Open/Close Eyes and Pediatric Dietician/Release Non-Paretic Hand: Both Correctly Best Gaze (Only Horizontal Eye Movement): Normal Visual Field Testing: No Visual Loss Facial Paresis-Pt to Smile & Close Eyes or Grimace Symmetry: Minor Paralysis Motor Function - Right Arm: No Effort Against [place] Motor Function - Left Arm: No Drift-Holds 10 Seconds Motor Function - Right Leg: No Effort Against [place] Motor Function - Left Leg: No Drift-Holds 10 Seconds Limb Ataxia-Must be out of Proportion to Weakness Present: Present in One Limb Sensory (Use Pinprick to Test Arms/Legs/Trunk/Face): Pinprick Less on Affected Best Language (Describe Picture, Name Items): Some Loss Dysarthria (Read Several Words): Slurs Some Words Extinction and Inattention: No Abnormality Total Score: 11 Re-Evaluation - Re-Evaluation First Eval Re-Evaluation Time: 11:26 Change: Unchanged Comment: Dr. Murcia now requests a CTA, which I will order. Course/Dx - Course Assessment/Plan: The pt is a 66 y/o M BIBA with R-sided weakness and some aphasia that began today at 09:25. He has R-sided facial droop, slurred speech, R-sided sensory loss. These deficits are constant. They are aggravated and alleviated by nothing. He was not given any medication prior to arrival. He denies visual loss. NIH score of 11. Test results are without significant abnormality except a slight anemia and alcohol of 129. The head CT is negative. CXR shows no acute intracranial findings. We called a Code Moser as soon as the patient came into the ED. The patient was given ASA per rectum. I discussed the case with Dr. Murcia, neurology. At this point, after we spoke with family we are still unsure at what time there was onset of symptoms, but the patient was last known well today at 05:00. Therefore, he is out of the window for tPA and is not a candidate. Dr. Murcia requests a CTA Head and Neck and admission to the hospitalists. I discussed the case with Dr. Anna, hospitalist, who accepts the patient for admission to [facility]. - Differential Dx Differential Diagnoses Neuro: Positive: Cerebrovascular Accident, Seizure Disorder, Transient Ischemic Attack - Diagnoses Provider Diagnoses: ischemic CVA - Physician Notifications Discussed Care Of Patient With: Octavia Murcia Time Discussed With Above Provider: 10:52 Instructed by Provider To: Other - I consulted with Dr. Murcia, neurology, regarding patient care. I also consulted with Dr. Anna, hospitalist, at 12:05 , who admits the patient to [facility]. Discharge - Discharge Plan Condition: Fair Disposition: ADMITTED TO [facility] documentation as recorded by the Jean aPul mcallister Thomas accurately reflects the service I personally performed and the decisions made by me, Yamil Wang MD.
[2017-09-18] MEDS ORDERED: Ziprasidone IM INJ* 20 MG/ML VIAL IM ONE ×2 (00:16→22:00)
[2017-09-18] MEDS: Labetalol IV* 5 MG/ML 20 ML VIAL IV PUSH PRN ×2 (01:11→03:58)
[2017-09-18] MEDS: LORazepam TAB(*) 1 MG PO SCH ×3 (02:01→23:34)
[2017-09-18] MEDS: LORazepam INJ* 2 MG/ML 1 ML VIAL IV PUSH SCH ×4 (03:58→21:15)
[2017-09-18] MEDS: Metoprolol Tartrate TAB* 25 MG PO SCH ×4 (04:06→20:21)
[2017-09-18 05:59] LABS: Blood Urea Nitrogen 4 mg/dL (6-24); CO2 Carbon Dioxide 24 mmol/L (22-32); Calcium 8.9 mg/dL (8.6-10.3); Chloride 98 mmol/L (101-111); EGFR African American 214.6 (>60); EGFR Non-African American 166.9 (>60); Glucose 129 mg/dL (70-100); Sodium 132 mmol/L (133-145)
[2017-09-18] MEDS: NS 0.9% 1000 ML* 1,000 ML IV SCH (07:16)
[2017-09-18 07:33] LABS: Anion Gap 10 mmol/L (2-11)
[2017-09-18] MEDS: Folic Acid TAB* 1 MG PO SCH (09:17)
[2017-09-18] MEDS: Thiamine TAB* 100 MG TAB PO SCH (09:18)
[2017-09-18] MEDS: Aspirin Low Dose CHEW TAB* 81 MG PO SCH (09:23)
[2017-09-18] MEDS: Metoprolol Tartrate IV* 1 MG/ML 5 ML VIAL IV PRN ×2 (09:35→14:48)
[2017-09-18] MEDS: Multivitamins/Minerals TAB PO SCH (09:42)
--- NOTE | 2017-09-18 10:39 | PN ---
PROGRESS NOTE DATE: 09/18/17 - ROOM #[id number]. SUBJECTIVE: Overnight, the patient became agitated. Security was called and was at the bedside earlier. He was belligerent with nurses, trying to get out of bed. At one point, his diastolic blood pressure was 109. He was given labetalol. At times, he's been oriented to self and time, other times he's been completely confused. He's tachycardic at times with some episodes of what appear to be SVT in the 200s, getting metoprolol 5 mg IV q 1 hour prn sustained SVT, as well as metoprolol 12.5 mg po q 6 hours scheduled. He also has received Ativan, most recently given at 3:58 this morning, and he's very somnolent at this point. PHYSICAL EXAM: Vital signs - temp 96.0, pulse rate 83; has been in the 100s as well. Respiratory rate 20, pulse ox 99%, blood pressure 156/96. Overnight, blood pressure has been 147/90 to 117/73 to 162/113 to 150/109 to 156/96. In general, he's a thin, poorly-nourished gentleman lying in his hospital bed, bed railings and pads are up. He is sleeping, but awakens, although remains somnolent. He's agitated. He gets angry, non-compliant with the examination for most of the exam. He's normocephalic, atraumatic. Sclerae are dirty. Mucous membranes are slightly dry. Oropharynx is clear. Poor dentition. Neck - supple. Chest - clear to auscultation bilaterally. Cardiovascular - regular rate and rhythm, no murmurs. Abdomen - scaphoid. Extremities - no clubbing, cyanosis or edema. Skin - warm, flaky and dry. Neurologic exam - he does awaken. He's very confused. He's oriented to person only. His speech is somewhat dysarthric, although a paucity of speech. He's not speaking much to me , and he's angry. He keeps telling me why are you asking me these stupid questions. He is oriented to person, but he would not answer other orientation questions. Pupils appear equally round and reactive to light. Extraocular muscles appear to be intact. Visual pillai are difficult to assess. He will not keep his eyes open. Face - he has a right lower facial droop. Facial sensation I cannot assess. Tongue is midline. Posterior oropharynx - his palate is symmetric. His motor exam - he spontaneously moves all extremities antigravity. He has good resistance on the left side upper and lower extremities. He has 4+/5 on the right side with no drift apparent, although very difficult exam. He's 4+/5 in the right lower extremity with no drift, but, again, a difficult exam. DTRs are 2+ and symmetric in the upper and lower extremities. Withdrawal Babinski bilaterally. Sensation is difficult to assess but he seems to sense pain in all four extremities with withdrawal. LABWORK: This morning, sodium 132, chloride 98, BUN 4, creatinine 0.5, glucose 129, calcium yesterday 8.4, magnesium 1.7, LFTs remain elevated with AST 235, ALT 72. Free T4 0.69, TSH 0.59, folate 9.07, B12 was 634. No further studies done today, although yesterday he did have a venous ultrasound of the lower extremities which showed a non-visualization of one of the peroneal veins on the left, suspicious for a thrombus which could be acute or chronic. He did have a PFO noted on transthoracic echocardiogram the day before. CURRENT MEDICATIONS: The list was reviewed and he is on: 1. Aspirin 81 mg q day. 2. Lipitor 80 mg q day. 3. Lovenox 40 mg subcutaneously q 24 hours. 4. Folic acid. 5. Labetalol prn. 6. Lorazepam 2 mg po q 8 hours. 7. Lorazepam prn for agitation. 8. Metoprolol 12.5 mg po q 6 hours. 9. Metoprolol prn for SVT. 10. Multivitamin. 11. IV fluids. 12. Thiamine. ASSESSMENT AND PLAN: Mr. Trotter is a 66-year-old gentleman with heavy alcohol use, heavy marijuana use, smoker, does not go to the doctor, has multiple risk factors for stroke, presented with a left CVA, now with right residual weakness , currently on aspirin 81 mg q day, Lipitor. We're allowing for some permissive hypertension with labetalol prn. 1. At this point from a stroke standpoint, he's actually improved. He does have a PFO and there is some evidence of possible DVT in his lower extremity although it's a poor study, poor visualization. He doesn't have any swelling or cords in his lower extremity. At this point, I discussed with the primary care physician and we feel like any anticoagulation other than aspirin is not warranted. Certainly from a stroke standpoint, studies have indicated that full -strength anticoagulation is not beneficial in this particularly setting. In addition, because of his heavy alcohol use noncompliance and fall risk, I'd be very hesitant to put him on any kind of anticoagulation and I think this is contraindicated. 2. Withdrawal - currently on Ativan prn, getting multivitamin, Folate and thiamine. Continue with seizure precautions. Continue with prn meds as well as scheduled meds for his alcohol withdrawal. 3. SVT - likely related to the alcohol withdrawal, getting metoprolol and has metoprolol prn as well. 4. At this point, he's not in good condition to get physical therapy, although I would like to try to get him some at some point. The goal for now is to allow him to withdraw and support him, continue secondary stroke risk factor reduction, and we will monitor his blood pressures and start to tighten his parameters. Over the next 24 hours, I'll continue to monitor him closely and make further recommendations as necessary. [id number]/[facility] #: [id number]
[2017-09-18] MEDS: Enoxaparin(*) 40 MG/0.4 ML SYR SUBCUT SCH (13:54)
[2017-09-18] MEDS ORDERED: Amiodarone 150 MG IVPREMIX* 150 MG/100 ML BAG IV ONE ×4 (14:51→17:57)
[2017-09-18] MEDS ORDERED: Magnesium Sulfate 2 GM IV* 2 GM/50 ML BAG IVPB ONE (14:54)
[2017-09-18] MEDS ORDERED: Amiodarone 360 MG IVPREMIX* 360 MG/200 ML BAG IV ONE ×3 (14:59→18:00)
[2017-09-18 15:46] LABS: BUN/Creatinine Ratio 8.9 (8-20); Calcium 8.8 mg/dL (8.6-10.3); EGFR African American 188.3 (>60); EGFR Non-African American 146.4 (>60); Magnesium 1.8 mg/dL (1.9-2.7); Potassium 3.1 mmol/L (3.5-5.0)
[2017-09-18] MEDS: Potassium Chloride LIQUID* 20 MEQ PACKET PO SCH (17:35)
[2017-09-18] MEDS: KCL 20 MEQ/100 ML IVPREMIX* 20 MEQ/100 ML BAG IV SCH ×2 (17:37→20:13)
[2017-09-18] MEDS: Atorvastatin* 80 MG TAB PO SCH (17:38)
--- NOTE | 2017-09-18 18:11 | PN ---
Subjective Date of Service: 09/18/17 Interval History: multiple recurrent episodes of SVT to 200s, occ 230s. Frequently breaks on own or with IV metoprolol but up to 2 minutes in duration longest. Transferring to ICU for amio loading. repleting lytes. Family History: Unchanged from Admission Social History: Unchanged from Admission Past Medical History: Unchanged from Admission Objective Active Medications: Aspirin (Aspirin Low Dose Tab*) 81 mg PO DAILY [facility] Last Admin: 09/18/17 09:23 Dose: 81 mg Atorvastatin Calcium (Lipitor*) 80 mg PO 1700 [facility] Last Admin: 09/18/17 17:38 Dose: 80 mg Enoxaparin Sodium (Lovenox(*)) 40 mg SUBCUT Q24H [facility] Last Admin: 09/18/17 13:54 Dose: 40 mg Folic Acid (Folvite Tab*) 1 mg PO DAILY [facility] Last Admin: 09/18/17 09:17 Dose: 1 mg Sodium Chloride (Ns 0.9% 1000 Ml*) 1,000 mls @ 100 mls/hr IV PER RATE [facility] Last Admin: 09/18/17 07:16 Dose: 100 mls/hr Potassium Chloride (Potassium Chloride 20 Meq/100 Ml Ivpremix*) 20 meq in 100 mls @ 50 mls/hr IV Q2H [facility] Stop: 09/18/17 20:59 Last Admin: 09/18/17 17:37 Dose: 50 mls/hr Amiodarone HCl (Nexterone 360 Mg/200 Ml Ivpremix*) 360 mg in 200 mls @ 33.333 mls/hr IV ONCE ONE PRN Reason: 1 MG/MIN Stop: 09/18/17 23:59 Amiodarone HCl (Nexterone 360 Mg/200 Ml Ivpremix*) 360 mg in 200 mls @ 16.666 mls/hr IV .PER PROTOCOL [facility] PRN Reason: 0.5 MG/MIN Labetalol HCl (Trandate Iv*) 10 mg IV PUSH Q20M PRN PRN Reason: BLOOD PRESSURE Last Admin: 09/18/17 03:58 Dose: 10 mg Lorazepam (Ativan Tab(*)) 2 mg PO Q12H [facility] PRN Reason: Taper Stop: 09/20/17 13:16 Last Admin: 09/18/17 12:51 Dose: Not Given Lorazepam (Ativan Tab(*)) 0 - 6 mg PO .PER [facility] PROTOCOL [facility] PRN Reason: Protocol Lorazepam (Ativan Inj*) 0 - 3 mg IV PUSH .PER [facility] PROTOCOL [facility] PRN Reason: Protocol Last Admin: 09/18/17 15:42 Dose: 1 mg Metoprolol Tartrate (Lopressor Tab*) 12.5 mg PO Q6H [facility] Last Admin: 09/18/17 15:46 Dose: 12.5 mg Metoprolol Tartrate (Lopressor Iv*) 5 mg IV Q1H PRN PRN Reason: Sustained SVT, HR>130 Last Admin: 09/18/17 14:48 Dose: 5 mg Multivitamins/Minerals (Theragran/Minerals Tab*) 1 tab PO DAILY [facility] Last Admin: 09/18/17 09:42 Dose: Not Given Potassium Chloride (Klor-Con Liquid*) 20 meq PO DAILY [facility] Last Admin: 09/18/17 17:35 Dose: 20 meq Thiamine HCl (Vitamin B-1 Tab*) 100 mg PO DAILY [facility] Last Admin: 09/18/17 09:18 Dose: 100 mg Vital Signs 09/17/17 09/17/17 09/17/17 18:25 18:47 19:00 Temperature 99.1 F Pulse Rate 88 Respiratory 18 20 20 Rate Blood Pressure 126/83 (mmHg) O2 Sat by Pulse 98 Oximetry 09/17/17 09/17/17 09/17/17 19:09 20:00 20:49 Temperature 98.3 F Pulse Rate 96 Respiratory 20 22 22 Rate Blood Pressure 147/90 (mmHg) O2 Sat by Pulse 99 99 Oximetry 09/17/17 09/17/17 09/17/17 20:52 21:07 22:07 Temperature Pulse Rate Respiratory 22 22 22 Rate Blood Pressure (mmHg) O2 Sat by Pulse Oximetry 09/17/17 09/17/17 09/18/17 22:54 23:38 00:38 Temperature 96.4 F Pulse Rate 88 Respiratory 18 22 20 Rate Blood Pressure 117/73 (mmHg) O2 Sat by Pulse 99 Oximetry 09/18/17 09/18/17 09/18/17 01:00 01:08 02:01 Temperature 98.1 F Pulse Rate 82 Respiratory 20 20 22 Rate Blood Pressure 162/113 (mmHg) O2 Sat by Pulse 97 Oximetry 09/18/17 09/18/17 09/18/17 03:00 03:17 03:58 Temperature 97.6 F Pulse Rate 91 Respiratory 20 20 20 Rate Blood Pressure 150/109 (mmHg) O2 Sat by Pulse 100 Oximetry 09/18/17 09/18/17 09/18/17 04:58 05:00 05:08 Temperature 96.0 F Pulse Rate 83 Respiratory 20 20 20 Rate Blood Pressure 156/96 (mmHg) O2 Sat by Pulse 99 Oximetry 09/18/17 09/18/17 09/18/17 07:00 08:00 09:00 Temperature 96.5 F Pulse Rate 105 Respiratory 20 20 19 Rate Blood Pressure 150/109 (mmHg) O2 Sat by Pulse 96 Oximetry 09/18/17 09/18/17 09/18/17 09:43 11:00 11:20 Temperature 98.4 F 96.6 F Pulse Rate 91 91 Respiratory 19 20 20 Rate Blood Pressure 129/96 154/111 (mmHg) O2 Sat by Pulse 97 99 Oximetry 09/18/17 09/18/17 09/18/17 12:51 13:00 13:19 Temperature 98.5 F Pulse Rate 103 Respiratory 18 20 20 Rate Blood Pressure 130/102 (mmHg) O2 Sat by Pulse 100 Oximetry 09/18/17 09/18/17 09/18/17 13:52 14:38 15:00 Temperature Pulse Rate Respiratory 20 20 20 Rate Blood Pressure (mmHg) O2 Sat by Pulse Oximetry 09/18/17 09/18/17 15:33 15:42 Temperature 97.6 F Pulse Rate 100 Respiratory 20 20 Rate Blood Pressure 139/95 (mmHg) O2 Sat by Pulse 99 Oximetry Oxygen Devices in Use Now: None Appearance: intermittently follows commands, no acute distress. unsteady gait upon trying to get up to bathroom. Eyes: No Scleral Icterus, PERRLA Ears/Nose/Mouth/Throat: Mucous Membranes Moist Neck: NL Appearance and Movements; NL JVP Respiratory: Symmetrical Chest Expansion and Respiratory Effort, Clear to Auscultation Cardiovascular: NL Sounds; No Murmurs; No JVD, RRR Abdominal: NL Sounds; No Tenderness; No Distention Extremities: No Edema Skin: No Rash or Ulcers Neurological: - - oriented to name, "[facility]", year. EOMI. discordinated right hand/arm on FTN and trying to feed self(is right handed). 4/ 5 RLE hip flexion. Result Diagrams: 09/16/17 11:25 09/18/17 15:15 Additional Lab and Data: Laboratory Results - last 24 hr 09/18/17 09/18/17 09/18/17 05:08 15:15 15:15 Sodium 132 L 135 Potassium TNP 3.1 L 3.1 L Chloride 98 L 99 L Carbon Dioxide 24 26 Anion Gap 10 10 BUN 4 L 5 L Creatinine 0.50 L 0.56 L Est GFR ( Amer) 214.6 188.3 Est GFR (Non-Af Amer) 166.9 146.4 BUN/Creatinine Ratio 8.0 8.9 Glucose 129 H 135 H Calcium 8.9 8.8 Magnesium TNP 1.8 L Assess/Plan/Problems-Billing Assessment: 66 yo male acute CVA (small lacunar infarcts in left basal ganglia and left posterior limb internal capsule, EtOH withdrawal, tobacco abuse, pFO, potential left peroneal vein DVT, course c/b multiple episodes of SVT to 200-230s. Transferring to ICU for amio loading, gtt. Likely to rehab vs. PMRU - Patient Problems (1) CVA (cerebral vascular accident) Current Visit: Yes Status: Acute Code(s): I63.9 - CEREBRAL INFARCTION, UNSPECIFIED SNOMED Code(s): 178060945 Comment: MRI shows small L sided lacunar infarcts. Appreciate Neuro assistance. Continue ASA, statin. Permissive HTN. PFO on echo, can't rule out left peroneal dopplers. Per Dr. Murcia does not recommend anticoagulation in setting of stroke. 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 (2) SVT (supraventricular tachycardia) Current Visit: Yes Status: Acute Code(s): I47.1 - SUPRAVENTRICULAR TACHYCARDIA SNOMED Code(s): 2146453 Comment: usually self resolves. lytes being repleted to goal K>4, Mg>2. Given frequency and potential for further acute swings in blood pressure/ potential hemodynamic instability will transfer to ICU for amiodarone loading 150mg then 1mg/hr x 6 hr, 0.5mg x 18 hr. Then planned po. (3) PFO (patent foramen ovale) Current Visit: Yes Status: Acute Code(s): Q21.1 - ATRIAL SEPTAL DEFECT SNOMED Code(s): 353581500 Comment: f/u with Dr. Hayes as an outpatient (4) Alcohol withdrawal Current Visit: Yes Status: Acute Code(s): F10.239 - ALCOHOL DEPENDENCE WITH WITHDRAWAL, UNSPECIFIED SNOMED Code(s): 783496538 Comment: contine [facility]AM protocol. 8mg Ativan prns last 24hr. Thiamine, folate, MVM. (5) DVT prophylaxis Current Visit: Yes Status: Acute Code(s): RFZ5128 - SNOMED Code(s): 756022629 Comment: Lovenox Status and Disposition: medicine inpatient. ICU for amio loading. Attending: Bill Pastor
[2017-09-18] MEDS ORDERED: Metoprolol Tartrate IV* 1 MG/ML 5 ML VIAL IV PRN (18:18)
[2017-09-19] MEDS ORDERED: Amiodarone 360 MG IVPREMIX* 360 MG/200 ML BAG IV SCH
[2017-09-19] MEDS ORDERED: Ziprasidone IM INJ* 20 MG/ML VIAL IM ONE (00:05)
[2017-09-19] MEDS ORDERED: LORazepam INJ* 2 MG/ML 1 ML VIAL IV PUSH ONE (01:37)
[2017-09-19] MEDS: LORazepam INJ* 2 MG/ML 1 ML VIAL IV PUSH SCH (01:51)
[2017-09-19] MEDS: Metoprolol Tartrate TAB* 25 MG PO SCH ×4 (05:09→21:58)
[2017-09-19 06:38] LABS: BUN/Creatinine Ratio 7.5 (8-20); EGFR African American 200.7 (>60); Magnesium 2.1 mg/dL (1.9-2.7); Potassium 3.2 mmol/L (3.5-5.0)
[2017-09-19] MEDS: KCL 20 MEQ/100 ML IVPREMIX* 20 MEQ/100 ML BAG IV SCH ×3 (09:01→14:39)
[2017-09-19] MEDS: Aspirin Low Dose CHEW TAB* 81 MG PO SCH (09:23)
[2017-09-19] MEDS: Folic Acid TAB* 1 MG PO SCH (09:25)
[2017-09-19] MEDS: Thiamine TAB* 100 MG TAB PO SCH (09:25)
[2017-09-19] MEDS: Multivitamins/Minerals TAB PO SCH (09:25)
[2017-09-19] MEDS: Clopidogrel TAB* 75 MG PO SCH (09:25)
[2017-09-19] MEDS: Potassium Chloride LIQUID* 20 MEQ PACKET PO SCH ×4 (09:27→17:40)
[2017-09-19] MEDS: LORazepam TAB(*) 1 MG PO SCH ×2 (09:33→21:57)
[2017-09-19] MEDS: Enoxaparin(*) 40 MG/0.4 ML SYR SUBCUT SCH (13:52)
--- NOTE | 2017-09-19 15:03 | RAD ---
Indication: Evaluate peroneal vein thrombosis. Duplex Doppler sonography deep venous system of left lower extremity was performed with special attention to the left calf. Only one of the peroneal veins appears patent and is visualized. There is suggestion that other paired peroneal vein is thrombosed. Findings are similar to that present on September 17, 2017. IMPRESSION: 1. Of the paired peroneal veins appears to be thrombosed as identified on September 17, 2017 without significant change. Clinical correlation is suggested.
[2017-09-19] MEDS: Atorvastatin* 80 MG TAB PO SCH (17:40)
--- NOTE | 2017-09-19 17:49 | PN ---
Subjective Date of Service: 09/19/17 Interval History: speech and strength is much better today. 4 min episode of SVT while in ICU. lytes repleting (K still low, Mg better). Cardiology consulted. Duplex LLE repeated still likely DVT. PT did not see. got more geodon IM for agitation 2129 and 29 Family History: Unchanged from Admission Social History: Unchanged from Admission Past Medical History: Unchanged from Admission Objective Active Medications: Aspirin (Aspirin Low Dose Tab*) 81 mg PO DAILY [facility] Last Admin: 09/19/17 09:23 Dose: 81 mg Atorvastatin Calcium (Lipitor*) 80 mg PO 1700 [facility] Last Admin: 09/19/17 17:40 Dose: 80 mg Clopidogrel Bisulfate (Plavix Tab*) 75 mg PO DAILY [facility] Last Admin: 09/19/17 09:25 Dose: 75 mg Enoxaparin Sodium (Lovenox(*)) 40 mg SUBCUT Q24H [facility] Last Admin: 09/19/17 13:52 Dose: 40 mg Folic Acid (Folvite Tab*) 1 mg PO DAILY [facility] Last Admin: 09/19/17 09:25 Dose: 1 mg Sodium Chloride (Ns 0.9% 1000 Ml*) 1,000 mls @ 100 mls/hr IV PER RATE [facility] Last Admin: 09/18/17 07:16 Dose: 100 mls/hr Labetalol HCl (Trandate Iv*) 10 mg IV PUSH Q20M PRN PRN Reason: BLOOD PRESSURE Last Admin: 09/18/17 03:58 Dose: 10 mg Lorazepam (Ativan Tab(*)) 2 mg PO Q12H [facility] PRN Reason: Taper Stop: 09/20/17 13:16 Last Admin: 09/19/17 09:33 Dose: 2 mg Lorazepam (Ativan Tab(*)) 0 - 6 mg PO .PER [facility] PROTOCOL [facility] PRN Reason: Protocol Lorazepam (Ativan Inj*) 0 - 3 mg IV PUSH .PER [facility] PROTOCOL [facility] PRN Reason: Protocol Last Admin: 09/19/17 01:51 Dose: 2 mg Metoprolol Tartrate (Lopressor Tab*) 12.5 mg PO Q6H [facility] Last Admin: 09/19/17 17:40 Dose: 12.5 mg Metoprolol Tartrate (Lopressor Iv*) 5 mg IV Q5M PRN PRN Reason: SVT w/ HR >150 Last Admin: 09/18/17 21:54 Dose: 5 mg Multivitamins/Minerals (Theragran/Minerals Tab*) 1 tab PO DAILY [facility] Last Admin: 09/19/17 09:25 Dose: 1 tab Potassium Chloride (Klor-Con Liquid*) 20 meq PO DAILY [facility] Last Admin: 09/19/17 09:27 Dose: 20 meq Thiamine HCl (Vitamin B-1 Tab*) 100 mg PO DAILY [facility] Last Admin: 09/19/17 09:25 Dose: 100 mg Vital Signs 09/18/17 09/18/17 09/18/17 18:09 18:26 18:27 Temperature 97.7 F Pulse Rate 94 94 89 Respiratory 23 20 Rate Blood Pressure 170/118 170/118 (mmHg) O2 Sat by Pulse 98 98 97 Oximetry 09/18/17 09/18/17 09/18/17 18:30 18:31 18:45 Temperature Pulse Rate 89 91 Respiratory 22 16 18 Rate Blood Pressure 181/124 152/109 (mmHg) O2 Sat by Pulse 98 99 Oximetry 09/18/17 09/18/17 09/18/17 19:00 19:02 19:15 Temperature Pulse Rate 93 93 92 Respiratory 26 29 22 Rate Blood Pressure 162/109 (mmHg) O2 Sat by Pulse 98 98 97 Oximetry 09/18/17 09/18/17 09/18/17 19:30 19:31 19:49 Temperature Pulse Rate 101 99 95 Respiratory 22 22 29 Rate Blood Pressure 154/120 144/110 (mmHg) O2 Sat by Pulse 99 99 98 Oximetry 09/18/17 09/18/17 09/18/17 20:00 20:15 20:30 Temperature 98.3 F Pulse Rate 90 91 93 Respiratory 23 26 26 Rate Blood Pressure 148/110 139/102 145/102 (mmHg) O2 Sat by Pulse 98 99 99 Oximetry 09/18/17 09/18/17 09/18/17 20:46 21:00 21:01 Temperature Pulse Rate 102 Respiratory 27 24 24 Rate Blood Pressure 162/114 171/126 (mmHg) O2 Sat by Pulse 99 Oximetry 09/18/17 09/18/17 09/18/17 21:15 21:30 21:48 Temperature Pulse Rate Respiratory 22 23 22 Rate Blood Pressure 168/123 166/113 (mmHg) O2 Sat by Pulse Oximetry 09/18/17 09/18/17 09/18/17 22:00 22:30 23:00 Temperature Pulse Rate Respiratory 24 18 24 Rate Blood Pressure (mmHg) O2 Sat by Pulse Oximetry 09/18/17 09/18/17 09/18/17 23:15 23:30 23:45 Temperature Pulse Rate 85 85 Respiratory 23 15 18 Rate Blood Pressure 163/113 132/95 128/90 (mmHg) O2 Sat by Pulse 99 97 Oximetry 09/18/17 09/19/17 09/19/17 23:46 00:00 00:30 Temperature 97.6 F Pulse Rate 85 Respiratory 34 10 Rate Blood Pressure 152/95 (mmHg) O2 Sat by Pulse 99 Oximetry 09/19/17 09/19/17 09/19/17 00:45 01:00 01:15 Temperature Pulse Rate 85 89 104 Respiratory 19 19 16 Rate Blood Pressure 150/106 149/103 153/105 (mmHg) O2 Sat by Pulse 98 98 98 Oximetry 09/19/17 09/19/17 09/19/17 01:30 01:45 01:51 Temperature Pulse Rate 98 99 Respiratory 23 16 22 Rate Blood Pressure 147/98 146/102 (mmHg) O2 Sat by Pulse 97 97 Oximetry 09/19/17 09/19/17 09/19/17 02:00 02:16 02:30 Temperature Pulse Rate 94 91 97 Respiratory 17 20 22 Rate Blood Pressure 137/96 133/90 (mmHg) O2 Sat by Pulse 97 98 97 Oximetry 09/19/17 09/19/17 09/19/17 03:00 03:27 03:30 Temperature Pulse Rate 94 92 87 Respiratory 20 21 17 Rate Blood Pressure 116/84 114/85 (mmHg) O2 Sat by Pulse 98 98 99 Oximetry 09/19/17 09/19/17 09/19/17 03:45 04:00 04:01 Temperature 97.2 F Pulse Rate 89 83 Respiratory 19 14 13 Rate Blood Pressure 120/80 137/94 (mmHg) O2 Sat by Pulse 98 100 Oximetry 09/19/17 09/19/17 09/19/17 04:16 04:30 05:00 Temperature Pulse Rate 93 Respiratory 16 17 20 Rate Blood Pressure 163/138 146/109 (mmHg) O2 Sat by Pulse 98 Oximetry 09/19/17 09/19/17 09/19/17 05:01 05:08 05:30 Temperature Pulse Rate 102 84 91 Respiratory 25 16 15 Rate Blood Pressure 215/191 154/105 183/122 (mmHg) O2 Sat by Pulse 98 97 97 Oximetry 09/19/17 09/19/17 09/19/17 06:00 06:30 07:00 Temperature Pulse Rate 87 85 88 Respiratory 24 16 16 Rate Blood Pressure 164/102 146/103 111/83 (mmHg) O2 Sat by Pulse 100 99 98 Oximetry 09/19/17 09/19/17 09/19/17 07:30 07:32 07:35 Temperature 98.4 F Pulse Rate 98 102 Respiratory 18 16 Rate Blood Pressure 166/128 (mmHg) O2 Sat by Pulse 99 97 Oximetry 09/19/17 09/19/17 09/19/17 08:00 08:18 08:30 Temperature Pulse Rate 85 75 72 Respiratory 20 14 15 Rate Blood Pressure 170/105 155/98 149/110 (mmHg) O2 Sat by Pulse 99 99 99 Oximetry 09/19/17 09/19/17 09/19/17 09:00 09:30 09:33 Temperature Pulse Rate 101 95 Respiratory 20 14 26 Rate Blood Pressure 164/127 170/115 (mmHg) O2 Sat by Pulse 91 99 Oximetry 09/19/17 09/19/17 09/19/17 10:00 10:01 10:30 Temperature Pulse Rate 99 103 90 Respiratory 21 14 19 Rate Blood Pressure 141/106 147/110 (mmHg) O2 Sat by Pulse 98 97 98 Oximetry 09/19/17 09/19/17 09/19/17 11:00 11:01 11:30 Temperature Pulse Rate 98 98 94 Respiratory 29 29 22 Rate Blood Pressure 139/108 125/88 (mmHg) O2 Sat by Pulse 97 99 97 Oximetry 09/19/17 09/19/17 09/19/17 11:36 12:00 12:30 Temperature 99.2 F Pulse Rate 96 108 Respiratory 18 13 Rate Blood Pressure 140/109 (mmHg) O2 Sat by Pulse 98 98 Oximetry 09/19/17 09/19/17 09/19/17 12:31 13:00 13:02 Temperature Pulse Rate 111 109 113 Respiratory 22 18 23 Rate Blood Pressure 160/131 147/111 (mmHg) O2 Sat by Pulse 95 100 100 Oximetry 09/19/17 09/19/17 09/19/17 13:30 13:31 13:53 Temperature Pulse Rate 95 100 90 Respiratory 24 14 23 Rate Blood Pressure 128/98 138/92 (mmHg) O2 Sat by Pulse 99 98 96 Oximetry 09/19/17 09/19/17 09/19/17 14:00 14:30 16:00 Temperature 99 F Pulse Rate 91 94 Respiratory 20 27 Rate Blood Pressure 140/101 122/95 (mmHg) O2 Sat by Pulse 99 96 Oximetry Oxygen Devices in Use Now: None Appearance: more alert, NAD. Eyes: No Scleral Icterus, PERRLA Ears/Nose/Mouth/Throat: NL Teeth, Lips, Gums, Mucous Membranes Moist Neck: NL Appearance and Movements; NL JVP, Trachea Midline Respiratory: Symmetrical Chest Expansion and Respiratory Effort, Clear to Auscultation Cardiovascular: NL Sounds; No Murmurs; No JVD, RRR Abdominal: NL Sounds; No Tenderness; No Distention, No Hepatosplenomegaly Extremities: No Edema, No Clubbing, Cyanosis Skin: No Rash or Ulcers, No Nodules or Sclerosis Neurological: Alert and Oriented x 3, NL Sensation, NL Muscle Strength and Tone , - - CN II-XII intact; FTN much improved on right w/ slowness but no dysmetria. Nutrition: Taking PO's Result Diagrams: 09/16/17 11:25 09/19/17 05:58 Additional Lab and Data: Laboratory Results - last 24 hr 09/18/17 09/18/17 09/18/17 05:08 15:15 15:15 Sodium 132 L 135 Potassium TNP 3.1 L 3.1 L Chloride 98 L 99 L Carbon Dioxide 24 26 Anion Gap 10 10 BUN 4 L 5 L Creatinine 0.50 L 0.56 L Est GFR ( Amer) 214.6 188.3 Est GFR (Non-Af Amer) 166.9 146.4 BUN/Creatinine Ratio 8.0 8.9 Glucose 129 H 135 H Calcium 8.9 8.8 Magnesium TNP 1.8 L Microbiology and Other Data: Microbiology 09/18/17 18:30 Nasal Screen MRSA (PCR)(LISANDRO) - Final Nasal Mrsa Negative Assess/Plan/Problems-Billing Assessment: 66 yo male acute CVA (small lacunar infarcts in left basal ganglia and left posterior limb internal capsule, EtOH withdrawal, tobacco abuse, pFO, likely left peroneal vein DVT, course c/b multiple episodes of SVT to 200-230s. Neurologic focal deficits improved, still intermittently agitated (sundown vs EtOh withdrawal). - Patient Problems (1) CVA (cerebral vascular accident) Current Visit: Yes Status: Acute Code(s): I63.9 - CEREBRAL INFARCTION, UNSPECIFIED SNOMED Code(s): 992679699 Comment: MRI shows small L sided lacunar infarcts. Appreciate Neuro assistance. Continue ASA, statin. Permissive HTN. PFO on echo, can't rule out left peroneal dopplers. Per Dr. 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 (2) SVT (supraventricular tachycardia) Current Visit: Yes Status: Acute Code(s): I47.1 - SUPRAVENTRICULAR TACHYCARDIA SNOMED Code(s): 8282439 Comment: lytes being repleted to goal K>4, Mg>2. prn metoprolol 5mg for HR >160. appreciate cardiology recs. (3) PFO (patent foramen ovale) Current Visit: Yes Status: Acute Code(s): Q21.1 - ATRIAL SEPTAL DEFECT SNOMED Code(s): 240505635 Comment: f/u with Dr. Hayes as an outpatient Per Dr. Murcia, would not put IVC filter in (4) Alcohol withdrawal Current Visit: Yes Status: Acute Code(s): F10.239 - ALCOHOL DEPENDENCE WITH WITHDRAWAL, UNSPECIFIED SNOMED Code(s): 041599753 Comment: contine [facility] protocol. 7mg Ativan prns last 24hr. Thiamine, folate, MVM. (5) DVT prophylaxis Current Visit: Yes Status: Acute Code(s): [id number] - SNOMED Code(s): 857617433 Comment: Lovenox Status and Disposition: medicine inpatient. Attending: Bill Pastor
[2017-09-19] MEDS: NS 0.9% 1000 ML* 1,000 ML IV SCH (22:09)
--- NOTE | 2017-09-19 22:11 | CONS ---
CC: Hospitalist Service, Dr. Pastor; Dr. Cope CARDIOLOGY CONSULT: DATE OF CONSULT: 09/19/17 HISTORY OF PRESENT ILLNESS: I was asked by hospitalist service, to see this 66- year-old -Am erican male, who was brought into the emergency room and then found to have cerebrovascular accident . Also, a venous ultrasound of the lower extremities documented DVT. Cardiology consult was reques ifrah as the patient last night had an episode of tachycardia while he was on the telemetry floor and responded to beta christin. He was started on amiodarone drip, which I later requested to be discont inued. The patient was found to have significant low potassium of 3.1, magnesium of 1.7 I understan d, currently they have been replenished. The patient gives no significant past medical history. He does not really follow up with Medicine as an outpatient. He gives no history of diabetes, hyperte nsion, hyperlipidemia, coronary artery disease, myocardial infarction, or congestive heart failure. He is known to have alcohol abuse and tobacco abuse. He is currently awake, alert. He is not in a cute distress. He had done echocardiogram on the that showed his EF to be 55% to 60%. There i s PFO, trace mitral insufficiency, mild to moderate tricuspid insufficiency, moderately dilated asce nding aorta. He gives no chest pain, no nausea, no vomiting, no hematochezia, no fever, no chills. No skin rash. No tremors. No hematochezia. No nausea. No vomiting, no abdominal pain. No syncop e is appreciated. His review of all other systems is essentially negative. PAST MEDICAL HISTORY: Includes history of alcoholism and history of tobacco consumption. PAST SURGICAL HISTORY: Not known to us. MEDICATIONS: His medications as an inpatient include: 1. Aspirin 81 mg daily. 2. Lipitor 80 mg daily. 3. Plavix 75 mg daily. 4. Lovenox. 5. Folic acid 1 mg daily. 6. Labetalol 10 mg IV push p.r.n. 7. He is also on Lopressor 12.5 mg q.6 hours. 8. Potassium. 9. Thiamine (vitamin B1). ALLERGIES: No known drug allergies. FAMILY HISTORY: No family history of premature CAD. SOCIAL HISTORY: He smokes about half a pack for 30 years. He drinks half a pint of vodka daily. H e denies history of drug abuse. PHYSICAL EXAM: On exam, he is awake, alert, and oriented. He is not in any acute distress. Vital Signs: Blood pressure is 120/70, pulse 90. Vitals; as I mentioned above, he is afebrile. Head and Neck Exam: Normocephalic, atraumatic head. Ears, Nose, and Throat: Essentially benign. Neck: S upple. JVP is not elevated. No carotid bruits. No masses in the neck are appreciated. Chest: Jose ar to auscultation. No rales, no wheeze, no added sounds appreciated. Heart: Normal. Regular S1 a nd S2. No added sounds, no gallops, no rubs. Abdomen: Benign, soft. Positive bowel sounds. Extre mities: No edema, no cyanosis, and no clubbing. Skin Exam: Normal. Psych: Normal affect and moo d. 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 DIAGNOSTIC STUDIES/LAB DATA: His EKG showed him to be in sinus rhythm that was done on the 18. T here is PACs, there is possible LVH. He does have documentation of the SVT that happened on the 18t h as well as also with a heart rate of about 150 and another episode that happened last night briefl y and transferred to the intensive care unit. His labs showed sodium 135; potassium 3.2; chloride 102; total CO2 25; BUN 4; creatinine 0.53; magne sium is 1.7, replenished to 2.1. His white blood cell is 7.9, hemoglobin 13.5, hematocrit 41, plate lets is 159,000. IMPRESSION: The patient is a 66-year-old male patient with: 1. Presentation with cerebrovascular accident probably related to the left middle cerebral artery. 2. Deep venous thrombosis bilaterally. 3. An episode of supraventricular tachycardia, could be related to his significant electrolyte abno rmalities. 4. Normal left ventricular systolic function with EF of 55% to 60%. 5. History of alcoholism and tobacco consumption. 6. Patent foramen ovale. 7. Mild to moderate tricuspid insufficiency. 8. Moderately dilated ascending aorta. PLAN: Continue hydration. I agree with replenishing his potassium and magnesium aggressively and k eep potassium more than 4 and magnesium more than 2. Avoid dehydration. Continue treatment for alc oholism and alcohol withdrawal and deep venous thrombosis as you are already doing. I agree with be ta christin treatment for tachycardia as well and definitely long-term risk stratification and quitti ng smoking and alcoholism hopefully and risk stratify him with a noninvasive stress test based on hi s comorbidities as an outpatient. I explained all of the above to him, I answered all his concerns and questions up to his satisfaction. We will follow him closely. We will make further recommendat ions accordingly. TIME SPENT: More than half of at least 60 plus minutes was in the education and counseling mode, fa ce-to-face. [id number]/[facility] #: [id number]
--- NOTE | 2017-09-19 23:19 | PN ---
PROGRESS NOTE: DATE OF SERVICE: 09/19/17 LOCATION: Currently, he is in ICU, bed 10. SUBJECTIVE: Overnight, the patient developed SVT in 200s. He was transferred to the ICU where he was loaded with amiodarone and is now on a drip. His rate is better. He also has been severely agitated at times. He did receive Geodon x2 last night. He has also received Ativan, his last dose was at 2 a.m. The nurses took care of him last night say that he was agitated, angry, lashing out at times, confused, seems to be more confused at night. He was not diaphoretic overnight. There have been no other focal signs on examination. No numbness, tingling, or weakness reported above his new baseline. OBJECTIVE: Vital Signs: Blood pressure 183/122 to 164/102 to 146/103, pulse has been 92 to 94 to 83 in the last 2 hours, previously episodes of SVT, respiratory rate is 16 to 24, pulse oxygen is 99% to 100%. In general, he is a thin, poorly nourished gentleman lying in his hospital bed. He is sleeping, but awakens. He is disheveled. HEENT: Normocephalic, atraumatic. Sclerae are anicteric but dirty. Mucous membranes are moist. Poor dentition. Neck is supple. Chest: Clear to auscultation bilaterally. Cardiovascular: Regular rate and rhythm. Abdomen is nontender. Extremities: There is no clubbing, cyanosis, or edema. He does have dry flaky skin. Neurologic: He is awake. He is alert. He is sleeping, but awakens. He remains alert. He is oriented to person only and hospital. His speech is somewhat dysarthric, but fluent. Cranial nerves: Pupils are equal, round and reactive to light. Extraocular muscles are intact. Visual pillai are full grossly, although difficult examination. Face: Some right lower facial droop, mild in nature. Facial sensation intact. Hearing is intact bilaterally. Tongue is midline. Palate raises symmetrically. He spontaneously moves all extremities antigravity. He has good resistance 4+/5 throughout. He does have a mild drift in the right upper extremity. No drift in the right lower extremity. No drift on the left side. Tone is normal. [id number] and rapid alternating movements were difficult. He is not tremulous at this time, but no obvious ataxia or dysdiadochokinesia. Sensation is grossly intact to light touch and pinprick. He initially seemed to extinguish on the right, but did not seem to extinguish on the left, so I think it is an unreliable examination. DTRs were 1+ and symmetric in the upper extremities, 2+ at the patella on the left, 3+ on the right. Ankles were trace. Withdrawal Babinski's bilaterally. Gait was not tested. LABORATORY DATA: Lab work overnight, sodium of 135, potassium of 3.2, BUN of 4 , creatinine of 0.53, BUN and creatinine ratio of 7.5, glucose of 113, calcium of 9.0, magnesium of 2.1. He did have a D-dimer of 1050. ASSESSMENT AND PLAN: Mr. Trotter is a 66-year-old gentleman who presents to the hospital with acute onset of right-sided weakness, slurred speech, facial droop. He also has a history of heavy alcohol and drug use, has undergone a complete stroke workup. Echocardiogram revealed a patent foramen ovale and lower extremity Dopplers revealed possible clot in his left peroneal vein, although it was not visualized and it is unclear at this point. His D-dimer was elevated. 1. Stroke. Currently, he is stable. He is improving. He is on aspirin. I am going to add Plavix to his regimen. He does have a patent foramen ovale and there is a possibility of a clot, but after speaking with his primary care physician, we both feel that anticoagulation in this gentleman is dangerous. He is a heavy alcoholic. He will not be compliant with his medications. He has a high risk of falling. He has had very poor followup with physicians and been noncompliant throughout his whole life. I am extremely worried that any anticoagulation in this gentleman could cause more harm than benefit, but that said, I am going to put him on aspirin and Plavix given the patent foramen ovale and we will continue his current care. He is on statin as well. We will continue that. The nature of his stroke appears to be more thromboembolic and not cardioembolic, so I think for now the plan will be to keep him on aspirin and Plavix as an outpatient and I will attempt to follow him up as an outpatient. 2. Heavy alcohol use and drug use. He is currently going through withdrawals. He has protocol for withdrawal. He is on folic acid, thiamine, multivitamin, fluids. He is now on day 3 or 4 from his last drink, so I expect that he is in the full throes of withdrawal. I suspect that some of his altered mental status is related to this and not the stroke. We will continue current care. 3. Supraventricular tachycardia likely related to his withdrawal, currently in the ICU, on amiodarone. I defer to primary versus further workup of this. 4. He is on DVT prophylaxis. Consider GI prophylaxis as well. Dr. Seals will be taking over his care tomorrow. I will sign out to him. [id number]/[facility] #: [id number] TRUPTI
[2017-09-20] MEDS: Metoprolol Tartrate TAB* 25 MG PO SCH ×4 (03:39→22:03)
[2017-09-20 05:52] LABS: BUN/Creatinine Ratio 12.3 (8-20); Calcium 8.8 mg/dL (8.6-10.3); EGFR African American 184.5 (>60); EGFR Non-African American 143.5 (>60); Magnesium 1.8 mg/dL (1.9-2.7); Potassium 3.8 mmol/L (3.5-5.0)
[2017-09-20] MEDS: NS 0.9% 1000 ML* 1,000 ML IV SCH ×2 (08:00→17:45)
--- NOTE | 2017-09-20 09:13 | PN ---
Subjective Date of Service: 09/20/17 - cc: svt, post CVA Interval History: The patient denies palpitations, says his stroke is gone. He wants to walk around. Denies orthopnea, PND, CP or SOB. Medications Active Medications: Aspirin (Aspirin Low Dose Tab*) 81 mg PO DAILY [facility] Last Admin: 09/19/17 09:23 Dose: 81 mg Atorvastatin Calcium (Lipitor*) 80 mg PO 1700 [facility] Last Admin: 09/19/17 17:40 Dose: 80 mg Clopidogrel Bisulfate (Plavix Tab*) 75 mg PO DAILY [facility] Last Admin: 09/19/17 09:25 Dose: 75 mg Enoxaparin Sodium (Lovenox(*)) 40 mg SUBCUT Q24H [facility] Last Admin: 09/19/17 13:52 Dose: 40 mg Folic Acid (Folvite Tab*) 1 mg PO DAILY [facility] Last Admin: 09/19/17 09:25 Dose: 1 mg Sodium Chloride (Ns 0.9% 1000 Ml*) 1,000 mls @ 100 mls/hr IV PER RATE [facility] Last Admin: 09/20/17 08:00 Dose: 100 mls/hr Labetalol HCl (Trandate Iv*) 10 mg IV PUSH Q20M PRN PRN Reason: BLOOD PRESSURE Last Admin: 09/18/17 03:58 Dose: 10 mg Lorazepam (Ativan Tab(*)) 1 mg PO Q12H [facility] PRN Reason: Taper Stop: 09/20/17 13:16 Last Admin: 09/19/17 21:57 Dose: 1 mg Lorazepam (Ativan Tab(*)) 0 - 6 mg PO .PER [facility] PROTOCOL [facility] PRN Reason: Protocol Last Admin: 09/19/17 21:58 Dose: 3 mg Lorazepam (Ativan Inj*) 0 - 3 mg IV PUSH .PER [facility] PROTOCOL [facility] PRN Reason: Protocol Last Admin: 09/19/17 01:51 Dose: 2 mg Metoprolol Tartrate (Lopressor Tab*) 12.5 mg PO Q6H [facility] Last Admin: 09/20/17 03:39 Dose: 12.5 mg Metoprolol Tartrate (Lopressor Iv*) 5 mg IV Q5M PRN PRN Reason: SVT w/ HR >150 Last Admin: 09/18/17 21:54 Dose: 5 mg Multivitamins/Minerals (Theragran/Minerals Tab*) 1 tab PO DAILY [facility] Last Admin: 09/19/17 09:25 Dose: 1 tab Potassium Chloride (Klor-Con Liquid*) 20 meq PO DAILY [facility] Last Admin: 09/19/17 09:27 Dose: 20 meq Thiamine HCl (Vitamin B-1 Tab*) 100 mg PO DAILY [facility] Last Admin: 09/19/17 09:25 Dose: 100 mg Objective Vital Signs: Temp Pulse Resp BP Pulse Ox 99.3 F 97 16 146/101 99 09/20/17 07:39 09/20/17 07:39 09/20/17 07:39 09/20/17 07:39 09/20/17 07:39 Oxygen Devices in Use Now: None Appearance: lean somewhat older gentleman, seated in no acute disress. Eyes: No Scleral Icterus, PERRLA Ears/Nose/Mouth/Throat: Mucous Membranes Moist Neck: NL Appearance and Movements; NL JVP Respiratory: Symmetrical Chest Expansion and Respiratory Effort, Clear to Auscultation Cardiovascular: RRR - fast, no murmurs., No Edema Abdominal: NL Sounds; No Tenderness; No Distention, No Hepatosplenomegaly Extremities: No Edema, No Clubbing, Cyanosis Skin: No Rash or Ulcers Neurological: NL Muscle Strength and Tone - oriented to person and place, anwers questions, not always appropriate, has trouble following commands. Eating breakfast unassisted. Laboratory Results: 09/20/17 04:56 INR (Anticoag Therapy) 0.85 (0.89-1.11) L 09/16/17 11:25 APTT 24.4 seconds (26.0-36.3) L 09/16/17 11:25 Total Bilirubin 0.60 mg/dL (0.2-1.0) 09/17/17 05:08 AST 235 U/L (13-39) H 09/17/17 05:08 ALT 72 U/L (7-52) H 09/17/17 05:08 Alkaline Phosphatase 65 U/L (34-104) 09/17/17 05:08 Total Protein 7.1 g/dL (6.4-8.9) 09/17/17 05:08 Albumin 3.9 g/dL (3.2-5.2) 09/17/17 05:08 Globulin 3.2 g/dL (2-4) 09/17/17 05:08 Albumin/Globulin Ratio 1.2 (1-3) 09/17/17 05:08 Triglycerides 82 mg/dL 09/16/17 11:25 Cholesterol 253 mg/dL 09/16/17 11:25 LDL Cholesterol 91 mg/dL 09/16/17 11:25 HDL Cholesterol 145.6 mg/dL 09/16/17 11:25 TSH 0.59 mcIU/mL (0.34-5.60) 09/16/17 19:33 EKG Data: Monitor: NSR, freqent PVC's, no recurrance of SVT. Assessment/Plan 66 yo admitted with slurred speech, R sided weakness, CVA in the setting of heavy alcohol use. Work up revealed popliteal thrombus, SVT, recurrent, and bubble study confirming cardiopulmonary shunt, possible PFO with lots of bubbles crossing easily with valsalva. Currently likely going through withdrawal which could contribute/cause ectopy. Points of Discussion: PVC's and SVT: I recommend increase metoprolol from 12.5 QID to 25 mg TID or 50 mg BID, could increase again as amiodarone wears off. Continue with electrolyte replacement for K level 4-5 and Mangesium >1.9. Shunt and stroke: Consider NURIA non urgently to confirm if PFO vs small ASD vs other CP shunt, evaluate size. Anticoagulation per neurology at this point in time.
[2017-09-20] MEDS ORDERED: Magnesium Sulfate 2 GM IV* 2 GM/50 ML BAG IVPB ONE (09:45)
[2017-09-20] MEDS: Thiamine TAB* 100 MG TAB PO SCH (09:54)
[2017-09-20] MEDS: Folic Acid TAB* 1 MG PO SCH (09:54)
[2017-09-20] MEDS: Multivitamins/Minerals TAB PO SCH (09:55)
[2017-09-20] MEDS: Aspirin Low Dose CHEW TAB* 81 MG PO SCH (09:56)
[2017-09-20] MEDS: Clopidogrel TAB* 75 MG PO SCH (09:57)
[2017-09-20] MEDS ORDERED: Potassium Chloride LIQUID* 20 MEQ PACKET PO ONE (10:00)
[2017-09-20] MEDS: Potassium Chloride LIQUID* 20 MEQ PACKET PO SCH (10:33)
[2017-09-20] MEDS: LORazepam TAB(*) 1 MG PO SCH (10:34)
[2017-09-20] MEDS: Enoxaparin(*) 40 MG/0.4 ML SYR SUBCUT SCH (15:17)
[2017-09-20] MEDS ORDERED: LORazepam INJ* 2 MG/ML 1 ML VIAL IV PUSH PRN (16:12)
--- NOTE | 2017-09-20 16:17 | PN ---
Subjective Date of Service: 09/20/17 Interval History: Pt intermittently agitated, got 1mg ativan at 2200. Strength is improved. Worked with physical therapy who thought would benefit from continued physical therapy. Impulsive, occasionally poor insight. One 9 sec episode of sinus tachycardia to 130s. Family History: Unchanged from Admission Social History: Unchanged from Admission Past Medical History: Unchanged from Admission Objective Active Medications: Aspirin (Aspirin Low Dose Tab*) 81 mg PO DAILY [facility] Last Admin: 09/20/17 09:56 Dose: 81 mg Atorvastatin Calcium (Lipitor*) 80 mg PO 1700 [facility] Last Admin: 09/19/17 17:40 Dose: 80 mg Clopidogrel Bisulfate (Plavix Tab*) 75 mg PO DAILY [facility] Last Admin: 09/20/17 09:57 Dose: 75 mg Enoxaparin Sodium (Lovenox(*)) 40 mg SUBCUT Q24H [facility] Last Admin: 09/20/17 15:17 Dose: 40 mg Folic Acid (Folvite Tab*) 1 mg PO DAILY [facility] Last Admin: 09/20/17 09:54 Dose: 1 mg Sodium Chloride (Ns 0.9% 1000 Ml*) 1,000 mls @ 100 mls/hr IV PER RATE [facility] Last Admin: 09/20/17 08:00 Dose: 100 mls/hr Labetalol HCl (Trandate Iv*) 10 mg IV PUSH Q20M PRN PRN Reason: BLOOD PRESSURE Last Admin: 09/18/17 03:58 Dose: 10 mg Lorazepam (Ativan Tab(*)) 0 - 6 mg PO .PER [facility] PROTOCOL [facility] PRN Reason: Protocol Last Admin: 09/19/17 21:58 Dose: 3 mg Lorazepam (Ativan Inj*) 0 - 3 mg IV PUSH .PER [place] PROTOCOL [facility] PRN Reason: Protocol Last Admin: 09/19/17 01:51 Dose: 2 mg Metoprolol Tartrate (Lopressor Iv*) 5 mg IV Q5M PRN PRN Reason: SVT w/ HR >150 Last Admin: 09/18/17 21:54 Dose: 5 mg Metoprolol Tartrate (Lopressor Tab*) 25 mg PO Q8H [facility] Last Admin: 09/20/17 15:16 Dose: 25 mg Multivitamins/Minerals (Theragran/Minerals Tab*) 1 tab PO DAILY [facility] Last Admin: 09/20/17 09:55 Dose: 1 tab Potassium Chloride (Klor-Con Liquid*) 20 meq PO DAILY [facility] Last Admin: 09/20/17 10:33 Dose: 20 meq Thiamine HCl (Vitamin B-1 Tab*) 100 mg PO DAILY [facility] Last Admin: 09/20/17 09:54 Dose: 100 mg Vital Signs 09/19/17 09/19/17 09/19/17 16:30 17:00 17:30 Temperature Pulse Rate 86 93 91 Respiratory 16 32 21 Rate Blood Pressure 154/100 155/106 141/97 (mmHg) O2 Sat by Pulse 100 97 99 Oximetry 09/19/17 09/19/17 09/19/17 18:00 18:30 19:00 Temperature 98.4 F Pulse Rate 92 112 98 Respiratory 19 23 16 Rate Blood Pressure 154/91 (mmHg) O2 Sat by Pulse 98 98 100 Oximetry 09/19/17 09/19/17 09/19/17 19:01 19:58 21:49 Temperature 98.4 F 99.2 F Pulse Rate 98 91 103 Respiratory 16 22 Rate Blood Pressure 154/91 156/99 (mmHg) O2 Sat by Pulse 100 96 Oximetry 09/19/17 09/19/17 09/19/17 21:57 21:58 22:29 Temperature Pulse Rate Respiratory 22 22 22 Rate Blood Pressure (mmHg) O2 Sat by Pulse 96 Oximetry 09/19/17 09/19/17 09/19/17 23:29 23:57 23:58 Temperature 98.7 F Pulse Rate 88 Respiratory 18 18 18 Rate Blood Pressure 148/91 (mmHg) O2 Sat by Pulse 100 Oximetry 09/20/17 09/20/17 09/20/17 01:16 03:18 05:21 Temperature 98.7 F Pulse Rate 94 94 89 Respiratory 16 16 Rate Blood Pressure 144/93 131/93 162/102 (mmHg) O2 Sat by Pulse 100 99 99 Oximetry 09/20/17 09/20/17 09/20/17 07:00 07:39 08:00 Temperature 99.3 F Pulse Rate 97 Respiratory 18 16 18 Rate Blood Pressure 146/101 (mmHg) O2 Sat by Pulse 99 97 Oximetry 09/20/17 09/20/17 09/20/17 10:34 11:00 11:19 Temperature 99.3 F Pulse Rate 93 Respiratory 16 18 16 Rate Blood Pressure 146/102 (mmHg) O2 Sat by Pulse 100 Oximetry 09/20/17 15:43 Temperature 99.0 F Pulse Rate 92 Respiratory 20 Rate Blood Pressure 143/101 (mmHg) O2 Sat by Pulse 100 Oximetry Oxygen Devices in Use Now: None Appearance: Alert, Quick temper with . NAD Eyes: No Scleral Icterus, PERRLA Ears/Nose/Mouth/Throat: NL Teeth, Lips, Gums, Mucous Membranes Moist Neck: NL Appearance and Movements; NL JVP Respiratory: Symmetrical Chest Expansion and Respiratory Effort, Clear to Auscultation Cardiovascular: NL Sounds; No Murmurs; No JVD, RRR Abdominal: NL Sounds; No Tenderness; No Distention, No Hepatosplenomegaly Extremities: No Edema Skin: No Rash or Ulcers Neurological: Alert and Oriented x 3, NL Sensation, NL Muscle Strength and Tone , - - reportedly wide based gait Nutrition: Taking PO's Result Diagrams: 09/16/17 11:25 09/20/17 04:56 Additional Lab and Data: Laboratory Results - last 24 hr 09/20/17 04:56 Sodium 132 L Potassium 3.8 Chloride 102 Carbon Dioxide 24 Anion Gap 6 BUN 7 Creatinine 0.57 L Est GFR ( Amer) 184.5 Est GFR (Non-Af Amer) 143.5 BUN/Creatinine Ratio 12.3 Glucose 107 H Calcium 8.8 Magnesium 1.8 L Microbiology and Other Data: Microbiology 09/18/17 18:30 Nasal Nasal Screen MRSA (PCR)(LISANDRO) - Final Mrsa Negative Assess/Plan/Problems-Billing Assessment: 66 yo male acute CVA (small lacunar infarcts in left basal ganglia and left posterior limb internal capsule, EtOH withdrawal, tobacco abuse, pFO, likely left peroneal vein DVT, course c/b multiple episodes of SVT to 200-230s, up to 4 min long. Now improved. Neurologic focal deficits have largely resolved, still intermittently agitated, impulsive. Likely to benefit from SNF for continued physical therapy. - Patient Problems (1) CVA (cerebral vascular accident) Current Visit: Yes Status: Acute Code(s): I63.9 - CEREBRAL INFARCTION, UNSPECIFIED SNOMED Code(s): 854848533 Comment: MRI shows small L sided lacunar infarcts. Appreciate Neuro assistance. Continue ASA, statin. Permissive HTN. shunt vs PFO on echo, can't rule out left peroneal dopplers. Per Dr. Twin does not recommend anticoagulation in setting of stroke or placement of IVC filter. Appreciate Cardiology recs. Recommend outpatient NURIA to further assess shunt ( pFO vs small ASD) Deficits largely resolved. PT/OT/Speech/CASHIER CHECKER. (2) SVT (supraventricular tachycardia) Current Visit: Yes Status: Acute Code(s): I47.1 - SUPRAVENTRICULAR TACHYCARDIA SNOMED Code(s): 6223466 Comment: lytes being repleted to goal K>4, Mg>2. prn metoprolol 5mg for HR >160. increased metoprolol from 12.5mg q6 to 25mg TID appreciate cardiology recs. (3) PFO (patent foramen ovale) Current Visit: Yes Status: Acute Code(s): Q21.1 - ATRIAL SEPTAL DEFECT SNOMED Code(s): 924907497 Comment: plan for NURIA as outpatient Per Dr. Murcia, would not put IVC filter in (4) Alcohol withdrawal Current Visit: Yes Status: Acute Code(s): F10.239 - ALCOHOL DEPENDENCE WITH WITHDRAWAL, UNSPECIFIED SNOMED Code(s): 481993322 Comment: stop WAM protocol. Thiamine, folate, MVM. (5) DVT prophylaxis Current Visit: Yes Status: Acute Code(s): PAJ2596 - SNOMED Code(s): 967242098 Comment: Lovenox Status and Disposition: medicine inpatient. PT thinks would benefit from continued rehab, referrals to SNFs should be made. Pt may not consent but "won't take him home" in present condition either. Attending: Bill Pastor
[2017-09-20] MEDS: Atorvastatin* 80 MG TAB PO SCH (17:46)
--- NOTE | 2017-09-21 00:04 | PN ---
NEUROLOGICAL FOLLOWUP NOTE: DATE OF VISIT: 09/20/2017. HISTORY: Dr. Murcia asked me to stop by to reassess for his stroke and now his withdrawal from heavy alcohol. His medications are unchanged and include aspirin and Plavix, Lipitor subcu, Lovenox, folic acid, labetalol p.r.n., Ativan as per protocol, thiamine. On exam, temperature 99.3, pulse 96, respirations 16, blood pressure 146/102. He was alert and somewhat upset, but he knew he is in the hospital and spoke in short sentences. Cranial nerves II through XII are intact. Motor; other than a mild right facial weakness, he had no pronator drift today. Strength appeared 5/5. Chest: Clear. Cardiovascular: Regular rate and rhythm. Abdomen : Soft. As Dr. Murcia has outlined, Dr. Murcia as part of the workup found a DVT associated PFO, but given his risks for anticoagulation also, it was unclear that the DVT may have been chronic enough to cause the stroke, it was decided not to treat with anticoagulation. He will remain on his aspirin and Plavix and I will be glad to see him as needed. Thank you for sharing his case. [id number]/[facility] #: [id number] TRUPTI
[2017-09-21] MEDS: NS 0.9% 1000 ML* 1,000 ML IV SCH (04:53)
[2017-09-21] MEDS: Metoprolol Tartrate TAB* 25 MG PO SCH ×3 (04:55→21:54)
[2017-09-21] MEDS: Multivitamins/Minerals TAB PO SCH (07:51)
[2017-09-21] MEDS: Potassium Chloride LIQUID* 20 MEQ PACKET PO SCH (07:51)
[2017-09-21] MEDS: Clopidogrel TAB* 75 MG PO SCH (07:51)
[2017-09-21] MEDS: Aspirin Low Dose CHEW TAB* 81 MG PO SCH (07:51)
[2017-09-21] MEDS: Thiamine TAB* 100 MG TAB PO SCH (07:52)
[2017-09-21] MEDS: Folic Acid TAB* 1 MG PO SCH (07:52)
[2017-09-21 08:00] LABS: BUN/Creatinine Ratio 10.7 (8-20); EGFR African American 188.3 (>60); EGFR Non-African American 146.4 (>60); Magnesium 1.9 mg/dL (1.9-2.7); Potassium 3.7 mmol/L (3.5-5.0)
--- NOTE | 2017-09-21 10:25 | PN ---
Subjective Date of Service: 09/21/17 Interval History: HOSPITALIST PROGRESS NOTE Patient seen and examined at bedside. He offers no complaints today, states his movements are much better. Family History: Unchanged from Admission Social History: Unchanged from Admission Past Medical History: Unchanged from Admission Objective Active Medications: Aspirin (Aspirin Low Dose Tab*) 81 mg PO DAILY [facility] Last Admin: 09/21/17 07:51 Dose: 81 mg Atorvastatin Calcium (Lipitor*) 80 mg PO 1700 [facility] Last Admin: 09/20/17 17:46 Dose: 80 mg Clopidogrel Bisulfate (Plavix Tab*) 75 mg PO DAILY [facility] Last Admin: 09/21/17 07:51 Dose: 75 mg Enoxaparin Sodium (Lovenox(*)) 40 mg SUBCUT Q24H [facility] Last Admin: 09/20/17 15:17 Dose: 40 mg Folic Acid (Folvite Tab*) 1 mg PO DAILY [facility] Last Admin: 09/21/17 07:52 Dose: 1 mg Sodium Chloride (Ns 0.9% 1000 Ml*) 1,000 mls @ 100 mls/hr IV PER RATE [facility] Last Admin: 09/21/17 04:53 Dose: 100 mls/hr Labetalol HCl (Trandate Iv*) 10 mg IV PUSH Q20M PRN PRN Reason: BLOOD PRESSURE Last Admin: 09/18/17 03:58 Dose: 10 mg Lorazepam (Ativan Inj*) 1 mg IV PUSH Q6H PRN PRN Reason: AGITATION Last Admin: 09/20/17 22:16 Dose: 1 mg Metoprolol Tartrate (Lopressor Iv*) 5 mg IV Q5M PRN PRN Reason: SVT w/ HR >150 Last Admin: 09/18/17 21:54 Dose: 5 mg Metoprolol Tartrate (Lopressor Tab*) 25 mg PO Q8H [facility] Last Admin: 09/21/17 04:55 Dose: 25 mg Multivitamins/Minerals (Theragran/Minerals Tab*) 1 tab PO DAILY [facility] Last Admin: 09/21/17 07:51 Dose: 1 tab Potassium Chloride (Klor-Con Liquid*) 20 meq PO DAILY [facility] Last Admin: 09/21/17 07:51 Dose: 20 meq Thiamine HCl (Vitamin B-1 Tab*) 100 mg PO DAILY [facility] Last Admin: 09/21/17 07:52 Dose: 100 mg Vital Signs 09/21/17 09/21/17 09/21/17 00:45 04:21 08:34 Temperature 98.4 F 98.4 F Pulse Rate 94 94 Respiratory 16 16 Rate Blood Pressure 150/102 181/104 (mmHg) O2 Sat by Pulse 100 100 99 Oximetry Oxygen Devices in Use Now: None Appearance: Pleasant gentleman lying in bed in NAD. Eyes: No Scleral Icterus Ears/Nose/Mouth/Throat: Mucous Membranes Moist Neck: Trachea Midline Respiratory: Symmetrical Chest Expansion and Respiratory Effort, Clear to Auscultation Cardiovascular: NL Sounds; No Murmurs; No JVD, RRR Abdominal: NL Sounds; No Tenderness; No Distention Neurological: Alert and Oriented x 3, NL Muscle Strength and Tone Lines/Tubes/Other Access: Clean, Dry and Intact Peripheral IV Nutrition: Taking PO's Result Diagrams: 09/16/17 11:25 09/21/17 07:30 Assess/Plan/Problems-Billing Assessment: Mr. Trotter is a 66 yo male with PMH of alcohol and tobacco abuse, who presented to ED after a fall with right sided weakness, found to have an acute CVA (small lacunar infarcts in left basal ganglia and left posterior limb internal capsule) , complicated by EtOH withdrawal, probable pFO, likely left peroneal vein DVT, multiple episodes of SVT to 200-230s, now improved. - Patient Problems (1) CVA (cerebral vascular accident) Comment: - MRI showed small left sided lacunar infarcts. - Neuro input appreciated. His CVA is felt to be thromboembolic, not cardioembolic, and Dr. Murcia felt he's at very high risk of bleeding with systemic anticoagulation. - Continue aspirin, Plavix, statin. - Echo showed probable shunt (PFO vs ASD); LE doppler showed peroneal DVT - appreciated Neuro and Cards recommendation - plan for outpatient NURIA to further assess shunt (pFO vs small ASD), no anticoagulation due to high risk of bleeding. - Continue PT/OT/Speech. (2) SVT (supraventricular tachycardia) Comment: - No further episodes of the past 24h. - Continue Metoprolol. - Electrolytes are normal. (3) PFO (patent foramen ovale) Comment: - PFO vs ASD - plan for NURIA as outpatient. - He has a below knee DVT - no indication for anticoagulation or IVC filter at this time - would repeat LE doppler in 1 week to assure stability. (4) Alcohol withdrawal Comment: - Much improved - received only 1 mg of Ativan yesterday. - Continue Thiamine, folate, MVM. (5) DVT prophylaxis Comment: - Lovenox. (6) Full code status (7) Physical deconditioning Comment: - Making progress with PT, but still impulsive. Status and Disposition: Inpatient. As per Dr. Pastor, PT thinks patient would benefit from continued rehab , referrals to SNFs should be made. Pt may not consent but "won't take him home" in present condition either.
[2017-09-21] MEDS: Enoxaparin(*) 40 MG/0.4 ML SYR SUBCUT SCH (13:45)
[2017-09-21] MEDS: Atorvastatin* 80 MG TAB PO SCH (16:25)
[2017-09-22] MEDS: Metoprolol Tartrate TAB* 25 MG PO SCH ×3 (05:13→20:23)
[2017-09-22 05:33] LABS: Hematocrit 35 % (42-52); Hemoglobin 11.7 g/dl (14.0-18.0); Mean Corpuscular HGB Conc 34 g/dl (31-36); Mean Corpuscular Hemoglobin 34 pg (27-31); Mean Corpuscular Volume 100 fL (80-94); Mean Platelet Volume 9 um3 (7.4-10.4); Red Blood Count 3.49 10^6/ul (4.0-5.4); Red Cell Distribution Width 14 % (10.5-15); White Blood Count 5.3 10^3/ul (3.5-10.8)
[2017-09-22 05:36] LABS: Add Diff/Slide Review? Slide Review Added; Comments Flag Yes
[2017-09-22 05:54] LABS: BUN/Creatinine Ratio 12.1 (8-20); Calcium 9.1 mg/dL (8.6-10.3); EGFR African American 180.8 (>60); EGFR Non-African American 140.6 (>60); Potassium 3.5 mmol/L (3.5-5.0)
[2017-09-22] MEDS: Multivitamins/Minerals TAB PO SCH (09:45)
[2017-09-22] MEDS: Thiamine TAB* 100 MG TAB PO SCH (09:45)
[2017-09-22] MEDS: Folic Acid TAB* 1 MG PO SCH (09:45)
[2017-09-22] MEDS: Aspirin Low Dose CHEW TAB* 81 MG PO SCH (09:45)
[2017-09-22] MEDS: Potassium Chloride LIQUID* 20 MEQ PACKET PO SCH ×2 (09:45→20:23)
[2017-09-22] MEDS: Clopidogrel TAB* 75 MG PO SCH (09:45)
--- NOTE | 2017-09-22 13:41 | PN ---
Subjective Date of Service: 09/22/17 Interval History: HOSPITALIST PROGRESS NOTE Patient seen and examined at bedside. "I feel a little jittery today", but offers no other complaints. Family History: Unchanged from Admission Social History: Unchanged from Admission Past Medical History: Unchanged from Admission Objective Active Medications: Aspirin (Aspirin Low Dose Tab*) 81 mg PO DAILY [facility] Last Admin: 09/22/17 09:45 Dose: 81 mg Atorvastatin Calcium (Lipitor*) 80 mg PO 1700 [facility] Last Admin: 09/21/17 16:25 Dose: 80 mg Clopidogrel Bisulfate (Plavix Tab*) 75 mg PO DAILY [facility] Last Admin: 09/22/17 09:45 Dose: 75 mg Enoxaparin Sodium (Lovenox(*)) 40 mg SUBCUT Q24H [facility] Last Admin: 09/21/17 13:45 Dose: 40 mg Folic Acid (Folvite Tab*) 1 mg PO DAILY [facility] Last Admin: 09/22/17 09:45 Dose: 1 mg Labetalol HCl (Trandate Iv*) 10 mg IV PUSH Q20M PRN PRN Reason: BLOOD PRESSURE Last Admin: 09/18/17 03:58 Dose: 10 mg Lorazepam (Ativan Inj*) 1 mg IV PUSH Q6H PRN PRN Reason: AGITATION Last Admin: 09/20/17 22:16 Dose: 1 mg Metoprolol Tartrate (Lopressor Iv*) 5 mg IV Q5M PRN PRN Reason: SVT w/ HR >150 Last Admin: 09/18/17 21:54 Dose: 5 mg Metoprolol Tartrate (Lopressor Tab*) 25 mg PO Q8H [facility] Last Admin: 09/22/17 05:13 Dose: 25 mg Multivitamins/Minerals (Theragran/Minerals Tab*) 1 tab PO DAILY [facility] Last Admin: 09/22/17 09:45 Dose: 1 tab Potassium Chloride (Klor-Con Liquid*) 20 meq PO DAILY [facility] Last Admin: 09/22/17 09:45 Dose: 20 meq Thiamine HCl (Vitamin B-1 Tab*) 100 mg PO DAILY [facility] Last Admin: 09/22/17 09:45 Dose: 100 mg Vital Signs 09/22/17 09/22/17 09/22/17 00:23 04:36 07:19 Temperature 98.9 F 98.6 F 99.0 F Pulse Rate 81 85 87 Respiratory 16 16 16 Rate Blood Pressure 133/88 152/91 142/92 (mmHg) O2 Sat by Pulse 100 99 99 Oximetry Oxygen Devices in Use Now: None Appearance: Pleasant gentleman sitting up in bed in NAD. Eyes: No Scleral Icterus Ears/Nose/Mouth/Throat: Mucous Membranes Moist Neck: Trachea Midline Respiratory: Symmetrical Chest Expansion and Respiratory Effort, Clear to Auscultation Cardiovascular: RRR - Normal S1 and S2 Abdominal: NL Sounds; No Tenderness; No Distention Neurological: Alert and Oriented x 3, - - CORONEL, face is symmetric Lines/Tubes/Other Access: Clean, Dry and Intact Peripheral IV Nutrition: Taking PO's Result Diagrams: 09/22/17 05:14 09/22/17 05:14 Assess/Plan/Problems-Billing Assessment: Mr. Trotter is a 66 yo male with PMH of alcohol and tobacco abuse, who presented to ED after a fall with right sided weakness, found to have an acute CVA (small lacunar infarcts in left basal ganglia and left posterior limb internal capsule) , complicated by EtOH withdrawal, probable pFO, likely left peroneal vein DVT, multiple episodes of SVT to 200-230s, now improved. - Patient Problems (1) CVA (cerebral vascular accident) Comment: - MRI showed small left sided lacunar infarcts. - Neuro input appreciated. His CVA is felt to be thromboembolic, not cardioembolic, and Dr. Murcia felt he's at very high risk of bleeding with systemic anticoagulation. - Continue aspirin, Plavix, statin. - Echo showed probable shunt (PFO vs ASD); LE doppler showed peroneal DVT - appreciated Neuro and Cards recommendation - plan for outpatient NURIA to further assess shunt (pFO vs small ASD), no anticoagulation due to high risk of bleeding. - Continue PT/OT/Speech. - PMRU evaluation. (2) SVT (supraventricular tachycardia) Comment: - No further episodes of the past 48h. - Continue Metoprolol. - Electrolytes are normal, but potassium is trending down - will repleat. (3) PFO (patent foramen ovale) Comment: - PFO vs ASD - plan for NURIA as outpatient. - He has a below knee DVT - no indication for anticoagulation or IVC filter at this time - would repeat LE doppler in 1 week to assure stability. (4) Alcohol withdrawal Comment: - Much improved - received only 1 mg of Ativan yesterday. - Continue Thiamine, folate, MVM. (5) DVT prophylaxis Comment: - Lovenox. (6) Full code status (7) Physical deconditioning Comment: - Making progress with PT, but still impulsive. - PMRU to evaluate. Status and Disposition: Inpatient.
[2017-09-22] MEDS: Enoxaparin(*) 40 MG/0.4 ML SYR SUBCUT SCH (13:48)
[2017-09-22] MEDS: Atorvastatin* 80 MG TAB PO SCH (16:42)
[2017-09-23] MEDS: Metoprolol Tartrate TAB* 25 MG PO SCH (05:57)
[2017-09-23 06:04] LABS: BUN/Creatinine Ratio 9.6 (8-20); Calcium 9.3 mg/dL (8.6-10.3); EGFR African American 205.1 (>60); EGFR Non-African American 159.5 (>60); Potassium 3.6 mmol/L (3.5-5.0)
[2017-09-23] MEDS: Folic Acid TAB* 1 MG PO SCH (09:09)
[2017-09-23] MEDS: Multivitamins/Minerals TAB PO SCH (09:09)
[2017-09-23] MEDS: Aspirin Low Dose CHEW TAB* 81 MG PO SCH (09:09)
[2017-09-23] MEDS: Clopidogrel TAB* 75 MG PO SCH (09:09)
[2017-09-23] MEDS: Potassium Chloride LIQUID* 20 MEQ PACKET PO SCH (09:09)
[2017-09-23] MEDS: Thiamine TAB* 100 MG TAB PO SCH (09:09)
--- NOTE | 2017-09-23 11:24 | DCNOTE ---
Subjective Date of Service: 09/23/17 Interval History: Occ pains in joints with exertion, no other c/o. He states he last smoked about 2 weeks ago, does not smoke every day. Family History: Unchanged from Admission Social History: Unchanged from Admission Past Medical History: Unchanged from Admission Objective Active Medications: Aspirin (Aspirin Low Dose Tab*) 81 mg PO DAILY [facility] Last Admin: 09/23/17 09:09 Dose: 81 mg Atorvastatin Calcium (Lipitor*) 80 mg PO 1700 [facility] Last Admin: 09/22/17 16:42 Dose: 80 mg Clopidogrel Bisulfate (Plavix Tab*) 75 mg PO DAILY [facility] Last Admin: 09/23/17 09:09 Dose: 75 mg Enoxaparin Sodium (Lovenox(*)) 40 mg SUBCUT Q24H [facility] Last Admin: 09/22/17 13:48 Dose: 40 mg Folic Acid (Folvite Tab*) 1 mg PO DAILY [facility] Last Admin: 09/23/17 09:09 Dose: 1 mg Metoprolol Tartrate (Lopressor Tab*) 25 mg PO BID [facility] Multivitamins/Minerals (Theragran/Minerals Tab*) 1 tab PO DAILY [facility] Last Admin: 09/23/17 09:09 Dose: 1 tab Potassium Chloride (Klor-Con Liquid*) 40 meq PO DAILY [facility] Thiamine HCl (Vitamin B-1 Tab*) 100 mg PO DAILY [facility] Last Admin: 09/23/17 09:09 Dose: 100 mg Vital Signs 09/22/17 09/22/17 09/22/17 11:19 16:01 20:00 Temperature 98.4 F 99.0 F Pulse Rate 86 82 Respiratory 20 18 18 Rate Blood Pressure 130/81 131/81 (mmHg) O2 Sat by Pulse 100 100 100 Oximetry 09/22/17 09/22/17 09/23/17 20:49 23:39 02:36 Temperature 99.9 F 98.9 F Pulse Rate 89 81 Respiratory 18 16 Rate Blood Pressure 125/86 137/93 (mmHg) O2 Sat by Pulse 100 99 99 Oximetry 09/23/17 03:55 Temperature 99.1 F Pulse Rate 85 Respiratory 16 Rate Blood Pressure 127/82 (mmHg) O2 Sat by Pulse 99 Oximetry Oxygen Devices in Use Now: None Appearance: Alert, partly up in bed. In good spirits. Looks comfortable. Eyes: No Scleral Icterus Ears/Nose/Mouth/Throat: Clear Oropharnyx, Mucous Membranes Moist Neck: NL Appearance and Movements; NL JVP, No Thyroid Enlargement, Masses Respiratory: Symmetrical Chest Expansion and Respiratory Effort, Clear to Auscultation, Clear to Percussion Cardiovascular: NL Sounds; No Murmurs; No JVD, RRR, No Edema Extremities: No Edema, No Clubbing, Cyanosis, - Skin: No Rash or Ulcers, No Nodules or Sclerosis, - Neurological: Alert and Oriented x 3, NL Sensation, - - Moves all limbs well. Result Diagrams: 09/22/17 05:14 09/23/17 04:36 Additional Lab and Data: Laboratory Results - last 24 hr 09/20/17 04:56 Sodium 132 L Potassium 3.8 Chloride 102 Carbon Dioxide 24 Anion Gap 6 BUN 7 Creatinine 0.57 L Est GFR ( Amer) 184.5 Est GFR (Non-Af Amer) 143.5 BUN/Creatinine Ratio 12.3 Glucose 107 H Calcium 8.8 Magnesium 1.8 L Microbiology and Other Data: Microbiology 09/18/17 18:30 Nasal Nasal Screen MRSA (PCR)(LISANDRO) - Final Mrsa Negative Assess/Plan/Problems-Billing Assessment: Mr. Trotter is a 66 yo male with PMH of alcohol and tobacco abuse, who presented to ED after a fall with right sided weakness, found to have an acute CVA (small lacunar infarcts in left basal ganglia and left posterior limb internal capsule) , complicated by EtOH withdrawal, probable pFO, likely left peroneal vein DVT, multiple episodes of SVT to 200-230s, now improved. - Patient Problems (1) CVA (cerebral vascular accident) Current Visit: Yes Status: Acute Code(s): I63.9 - CEREBRAL INFARCTION, UNSPECIFIED SNOMED Code(s): 291458452 Comment: - MRI showed small left sided lacunar infarcts. - Neuro input appreciated. His CVA is felt to be thromboembolic, not cardioembolic, and Dr. Murcia felt he's at very high risk of bleeding with systemic anticoagulation. - Continue aspirin, Plavix, statin. - Echo showed probable shunt (PFO vs ASD); LE doppler showed peroneal DVT - appreciated Neuro and Cards recommendation - plan for outpatient NURIA to further assess shunt (pFO vs small ASD), no anticoagulation due to high risk of bleeding. (2) Alcohol withdrawal Current Visit: Yes Status: Acute Code(s): F10.239 - ALCOHOL DEPENDENCE WITH WITHDRAWAL, UNSPECIFIED SNOMED Code(s): 128376175 Comment: - Much improved - received only 1 mg of Ativan 09/20. - Continue Thiamine, folate. (3) PFO (patent foramen ovale) Current Visit: Yes Status: Acute Code(s): Q21.1 - ATRIAL SEPTAL DEFECT SNOMED Code(s): 055107120 Comment: - PFO vs ASD - plan for NURIA as outpatient. - He has a below knee DVT - no indication for anticoagulation or IVC filter at this time - would repeat LE doppler in 1 week to assure stability. Status and Disposition: Discharge to [facility].
--- NOTE | 2017-09-23 11:38 | PN ---
Progress Note - Progress Note Date of Service: 09/23/17 Note: Time spent on discharge 50 minutes.
[2017-09-23 11:55] VITALS: BP 147/95
[2017-09-23] MEDS ORDERED: Metoprolol Tartrate TAB* 25 MG PO SCH (21:00)
--- NOTE | 2017-09-24 01:41 | TRS ---
TRANSFER SUMMARY: DATE OF ADMISSION: 09/16/17 DATE OF TRANSFER: 09/23/17 HISTORY OF PRESENT ILLNESS: This 66-year-old man presented with right-sided weakness. He had falle n down at home. His found him on the floor about 9:30 in the morning between the dresser and t he bed. She could not pick him up and noticed he was weak on the right side and his speech was slur red. The patient had excellent recovery in the hospital. His MRI showed lacunar infarcts in the left hem isphere. On transthoracic echocardiogram, his ejection fraction was normal. There was a patent for amen ovale with predominant right to left shunting. Dr. Murcia felt the patient's risk of bleeding was excessive and did not recommend full anticoagulatio n. He was started on aspirin, clopidogrel, and a statin. He was treated for alcohol withdrawal as well. It is recommended that the patient have a NURIA as an outpatient to determine whether this was a PFO o r an ASD. FINAL DIAGNOSES: 1. Cerebrovascular accident. 2. Alcohol withdrawal. 3. Patent foramen ovale versus atrial septal defect. TRANSFER MEDICATIONS: 1. Atorvastatin 80 mg daily at 5 p.m. 2. Clopidogrel 75 mg daily. 3. Folic acid 1 mg daily. 4. Metoprolol 25 mg b.i.d. 5. Potassium chloride 40 mEq once daily. 6. Thiamine 100 mg daily. [id number]/[facility] #: [id number]
[2017-09-24] MEDS ORDERED: Potassium Chloride LIQUID* 20 MEQ PACKET PO SCH (09:00)
== END 2017-09-23 12:49 | DRG 65 ==
LOC: ED 10:41 → MEDTELE 12:20 → ICU 09-18 17:55 → MEDTELE 09-19 18:55
PROVIDERS: ADMIT Hospitalist; ATTEND Internal Medicine
DX: I63.9 Cerebral infarction, unspecified (principal); F10.239 Alcohol dependence with withdrawal, unspecified; E87.2 Acidosis; I82.403 Acute embolism and thrombosis of unspecified deep veins of lower extremity, bilateral; G81.91 Hemiplegia, unspecified affecting right dominant side; I47.1 Supraventricular tachycardia; I82.492 Acute embolism and thrombosis of other specified deep vein of left lower extremity; Q21.1 Atrial septal defect; F10.229 Alcohol dependence with intoxication, unspecified; R47.01 Aphasia; I08.1 Rheumatic disorders of both mitral and tricuspid valves; F17.210 Nicotine dependence, cigarettes, uncomplicated; K70.10 Alcoholic hepatitis without ascites; F12.90 Cannabis use, unspecified, uncomplicated; Y90.6 Blood alcohol level of 120-199 mg/100 ml; I77.819 Aortic ectasia, unspecified site; I10 Essential (primary) hypertension; I49.3 Ventricular premature depolarization; R29.810 Facial weakness; R29.711 NIHSS score 11; Z79.02 Long term (current) use of antithrombotics/antiplatelets; Z82.49 Family history of ischemic heart disease and other diseases of the circulatory system; Z83.3 Family history of diabetes mellitus
CPT/HCPCS: 36415; 70030; 70450; 70496; 70498; 70551; 71010; 80048; 80053; 80061; 80320; 81003; 81015; 82550; 82607; 82746; 83036; 83090; 83605; 83735; 84439; 84443; 84484; 85025; 85379; 85610; 85730; 86850; 86900; 86901; 87641; 93005; 93306; 93970; 94760; A9270-GY; G0480; G8996-GN-CH; G8996-GN-CK; G8997-GN-CH; G8997-GN-CK; G8998-GN-CH; G8998-GN-CK; J0282; J1650; J2060; J3411; J3475; J3480; J3486; Q9967

== ENCOUNTER 2019-03-15 11:59 | Emergency (ER) | payer MEDICARE ==
[2019-03-15] MEDS ORDERED: Lidocaine 1% MDV 20 ML INJ ONE (12:21)
[2019-03-15 13:05] VITALS: BP 123/86
--- NOTE | 2019-03-15 16:48 | ED ---
Skin Complaint - HPI Summary HPI Summary: Patient is a 68-year-old male who presents to the ED with right little toe pain. He states that the little toe has been worsening. He denies any trauma. He states it may be an ingrown toenail, however "hasn't checked." He denies any fevers, sweats, chills. There is no radiation of pain. Symptoms are worsened with ambulation and better with rest. - History of Current Complaint Chief Complaint: EDExtremityLower Time Seen by Provider: 03/15/19 12:32 Stated Complaint: TOE INJURY PER PT Hx Obtained From: Patient Onset/Duration: Started Weeks Ago Skin Exposure Onset/Duration: Weeks Ago Timing: Constant Onset Severity: Moderate Current Severity: Moderate Pain Intensity: 3 Pain Scale Used: 0-10 Numeric Skin Location: Other: - right little toe Aggravating Symptom(s): Nothing Alleviating Symptom(s): Nothing Associated Signs & Symptoms: Negative - Additional Pertinent History Primary Care Physician: ALTON - Allergy/Home Medications Allergies/Adverse Reactions: Allergies Allergy/AdvReac Type Severity Reaction Status Date / Time No Known Allergies Allergy Verified 03/15/19 12:09 PMH/Surg Hx/FS Hx/Imm Hx Previously Healthy: Yes Endocrine/Hematology History: Denies: Hx Diabetes, Hx Thyroid Disease Cardiovascular History: Denies: Hx Hypertension, Hx Pacemaker/ICD Respiratory History: Denies: Hx Asthma, Hx Chronic Obstructive Pulmonary Disease (COPD) GI History: Denies: Hx Ulcer Sensory History: Denies: Hx Contacts or Glasses, Hx Hearing Aid Opthamlomology History: Denies: Hx Contacts or Glasses Psychiatric History: Denies: Hx Panic Disorder - Surgical History Surgery Procedure, Year, and Place: [facility] - Immunization History Hx Pertussis Vaccination: No Immunizations Up to Date: Yes Infectious Disease History: No Infectious Disease History: Denies: Hx Clostridium Difficile, Hx Hepatitis, Hx Human Immunodeficiency Virus (HIV), Hx of Known/Suspected MRSA, Hx Shingles, Hx Tuberculosis, Traveled Outside the [place] in Last 30 Days - Social History Occupation: Unemployed Lives: With Family Alcohol Use: Daily Hx Substance Use: No Substance Use Type: Reports: None Smoking Status (MU): Unknown if Ever Smoked Review of Systems Constitutional: Negative Negative: Fever, Chills, Fatigue, Skin Diaphoresis Negative: Palpitations, Chest Pain Negative: Shortness Of Breath, Cough Genitourinary: Negative Positive: no symptoms reported, see HPI Negative: Arthralgia, Myalgia Positive: Other - hypertrophy of the nail Neurological: Negative All Other Systems Reviewed And Are Negative: Yes Physical Exam Triage Information Reviewed: Yes Vital Signs On Initial Exam: Initial Vitals Temp Pulse Resp BP Pulse Ox 98.0 F 93 18 135/88 95 03/15/19 12:05 03/15/19 12:05 03/15/19 12:05 03/15/19 12:05 03/15/19 12:05 Vital Signs Reviewed: Yes Appearance: Positive: Well-Appearing, Well-Nourished Skin: Positive: Skin Color Reflects Adequate Perfusion, Other - Hypertrophy of the nail to all 10 toes Neck: Positive: Supple Respiratory/Lung Sounds: Positive: Clear to Auscultation, Breath Sounds Present Cardiovascular: Positive: Pulses are Symmetrical in both Upper and Lower Extremities Musculoskeletal: Positive: Strength/ROM Intact Neurological: Positive: Alert, Oriented to Person Place, Time, Speech Normal Psychiatric: Positive: Patient Uncooperative for Exam AVPU Assessment: Alert Diagnostics - Vital Signs Vital Signs Temp Pulse Resp BP Pulse Ox 03/15/19 13:04 98.4 F 99 16 123/86 98 03/15/19 12:05 98.0 F 93 18 135/88 95 - Laboratory Lab Statement: Any lab studies that have been ordered have been reviewed, and results considered in the medical decision making process. Course/Dx - Course Course Of Treatment: During his course treatment, the patient is evaluated for right little toe pain. On physical examination, he has onychauxis or significant hypertrophy of all toenails. The R little toe has significant hypertrophy with the nail growth approximately 0.7 cm above the toe. He states the area feels better when out of the shoe. There is no erythema, warmth or swelling. There is no ingrown toenail. It appears the toenail is rubbing on the shoe and creating a crush to the toe. Ring cutter used to shave off most of the nail to fit in the shoe. I have given him information regarding podiatry. He will f/u. - Diagnoses Provider Diagnoses: Hypertrophy of nail Discharge - Sign-Out/Discharge Documenting (check all that apply): Patient Departure Patient Received Moderate/Deep Sedation with Procedure: No - Discharge Plan Condition: Good Disposition: HOME Referrals: Vero Garland MD [Primary Care Provider] - Additional Instructions: You have thickened toenails which will need to be trimmed down [facility] Hong Esquivel DPM [phone] Please follow up with podiatry - follow up for appt - Billing Disposition and Condition Condition: GOOD Disposition: Home
== END 2019-03-15 13:04 | disposition home or self-care (01) ==
LOC: ED 11:59
DX: L60.2 Onychogryphosis (principal)
CPT/HCPCS: 99281

== ENCOUNTER 2019-12-03 16:40 | Emergency (ER) | payer MEDICARE ==
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
[2019-12-03] MEDS ORDERED: Ibuprofen TAB* 600 MG PO ONE (17:16)
[2019-12-03 17:36] VITALS: BP 158/95
== END 2019-12-03 17:31 | disposition home or self-care (01) ==
LOC: ED 16:40
DX: S49.92XA Unspecified injury of left shoulder and upper arm, initial encounter (principal); Y04.2XXA Assault by strike against or bumped into by another person, initial encounter; Y93.89 Activity, other specified; Y92.524 Gas station as the place of occurrence of the external cause; F17.200 Nicotine dependence, unspecified, uncomplicated
CPT/HCPCS: 99281; A9270-GY